=== PATIENT | female | born 1990 | race Caucasian/White ===

== ENCOUNTER 2016-08-15 15:12 | Emergency (ER) | payer OTHER ==
--- NOTE | 2016-08-15 15:54 | ED CLINICAL REPORT ---
Clinical Report - Physicians/Mid Levels [facility] [address] [place] [address] 08/15/2016 15:13 Patient: AVEL PATEL Time Seen: 15:49; initial patient contact. Arrived- By private vehicle. HISTORY OF PRESENT ILLNESS Chief Complaint: SINUS PAIN, CHILLS and MUSCLE ACHES. RUNNY NOSE. This started 10 days and is still present. The illness is described as mild. The patient has had a cough, nasal congestion, chills and a nasal discharge. No difficulty breathing, chest discomfort or pain or sore throat. Additional history - The patient has had contact with a sick individual. Similar symptoms previously: Many times (long history of recurrant sinusitis.). Recent medical care: Not recently seen/assessed. REVIEW OF SYSTEMS All systems otherwise negative, except as recorded above. PAST HISTORY See nurses notes. Problems: no known problems. Medications: SUMAtriptan Succinate Oral (Tablet 50 mg) 1 tablet, as needed. Allergies: None. SOCIAL HISTORY Light tobacco smoker (cigarette)- less than 1/2 a pack per day. Occasional alcohol use. No drug use. FAMILY HISTORY Negative. ADDITIONAL NOTES The nursing notes have been reviewed with agreement regarding the chief complaint, HPI, ROS, PMH and patient medications and allergies. PHYSICAL EXAM Vital Signs: 08/15/2016 15:35 BP: 118/74. HR: 74. RR: 18. O2 saturation: 99%. Temp: 98.4 F. Pain level now: 8/10. Have been reviewed. Appearance: Alert. No acute distress. Head: Tenderness present to percussion/palpation of the sinuses: mild right and left frontal tenderness, maxillary tenderness. Eyes: Pupils equal, round and reactive to light. Eyes normal inspection. ENT: Ears normal. Nose normal. Pharynx normal. Uvula midline. Neck: Normal inspection. Neck supple. CVS: Normal heart rate and rhythm. Heart sounds normal. Respiratory: No respiratory distress. Breath sounds normal. CLINICAL IMPRESSION Acute maxillary sinusitis INSTRUCTIONS No restrictions to activity. Drink plenty of fluids. Do not smoke. No alcohol. Warnings: GENERAL WARNINGS: Return or contact your physician immediately if your condition worsens or changes unexpectedly, if not improving as expected, or if other problems arise. Your Current Medications: CONTINUE TAKING THE FOLLOWING MEDICATIONS: SUMAtriptan Succinate Oral : Tablet 50 mg, 1 tablet, prn. Prescription Medications: Amoxicillin 500 mg capsules: take 1 orally every 8 hours for 10 days. No refills. Follow-up: Follow up with your doctor in ten days if not well. Reason for referral: sinusitis. Understanding of the discharge instructions verbalized by patient. (Electronically signed by Carla Faith PA-C 08/15/2016 16:23)
--- NOTE | 2016-08-15 15:54 | ED NURSING NOTES ---
Clinical Report - Nurses [facility] [address] [place] [address] 08/15/2016 15:13 Patient: AVEL PATEL TRIAGE Triage time 15:36 Aug 15 2016. Acuity: LEVEL 4. Chief Complaint: COUGH, RUNNY NOSE, FEVER and SORE THROAT and (co sinus pressure with cough, runny nose, fever and st since August 13). Alert (x 4). SEPSIS SCREEN: Sepsis Screen: negative. --15:46 Stacey Cornelius R.N. 15:35 08/15/16. BP: 118/74. HR: 74. RR: 18. O2 saturation: 99%. Temp: 98.4 F. Pain level now: 8/10. Additional comments: pt rates pain 8/10, describes as "pressure" in face and head. --15:46 Stacey Cornelius R.N. Weight: 81.6 kg stated. Height/Length: 67 inches Per Patient. BMI: 28.2. --15:44 Stacey Cornelius R.N. Medications SUMAtriptan Succinate Oral (Tablet 50 mg) 1 tablet, as needed. --15:38 Stacey Cornelius R.N. Allergies None. --15:39 Stacey Cornelius R.N. History Arrived by private vehicle. Historian: patient. Accompanied by family and mother and daughter. 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 (niquel cough syrup). PAST MEDICAL HX: Immunizations: up-to-date. Last normal menstrual period- Merina- reports gets period every 2-3 months. Denies current . SOCIAL HX: Current every day light tobacco smoker, start date 2006 (cigarette)- less than 1/2 a pack per day. Occasional alcohol use; consumes beer occasionally. No infectious disease exposure. ABUSE ASSESSMENT: No report of abuse. SELF HARM ASSESSMENT: A self harm assessment was performed. The patient answered "no" to the question "Have you recently felt down, depressed, or hopeless?", "Have you noticed less interest or pleasure in doing things?", "Do you have thoughts of harming or killing yourself?", "Are you here because you tried to hurt yourself?", "Have you ever tried to hurt yourself before today?", "Have you recently had thoughts about harming or killing others?" and "Do you have any dangerous items in your possession?". The patient reports their behavior. FALL RISK ASSESSMENT: Fall risk assessment completed. No fall risk identified. NUTRITIONAL RISK ASSESSMENT: The nutritional risk assessment revealed no deficiencies. FUNCTIONAL ASSESSMENT: Functional assessment: no impairments noted. LEARNING NEEDS ASSESSMENT: The learning needs assessment revealed no barriers. SKIN INTEGRITY ASSESSMENT: Skin integrity risk assessment completed. No skin integrity risk identified. --15:46 Stacey Cornelius R.N. PROBLEMS: no known problems. ADDITIONAL SURGERIES: Pin wrist . Wrist. --15:39 Stacey Cornelius R.N. Interventions ID band on patient. To treatment room. She does not have advanced directives. No allergy band on patient. --15:46 Stacey Cornelius R.N. PHYSICAL ASSESSMENT GENERAL / NEURO / PSYCH: Alert. Oriented X 4. Appears in no acute distress. HEENT: Pupils equal, round and reactive to light. Ears within normal limits. Nares within normal limits. Voice within normal limits. Mucous membranes are pink. RESPIRATORY: Respirations not labored. Breath sounds within normal limits. SKIN: Skin is warm and dry. Normal skin turgor. --15:46 Stacey Cornelius R.N. DISPOSITION / DISCHARGE Departure time: 16:09 Aug 15 2016. Condition at departure: unchanged. ( pt to p/u atbx and begin taking immediately following rx). No learning barriers present. Discharge instructions provided and reviewed with the patient. Reviewed medication(s) side effects, dosing and course information. Prescription(s) given to the patient. The patient has no activity restrictions. Note given. Patient verbalized understanding. Written instructions provided in [place]. The patient was discharged home and accompanied by family. She left the Emergency Department ambulatory and (ambulated to lobby with steady gait). Family member driving. --16:10 Stacey Cornelius R.N. 15:56 08/15/16. BP: 114/68. HR: 77. RR: 17. O2 saturation: 100%. Pain level now: 12/31. --16:10 Stacey Cornelius R.N. 15:56 08/15/16. BP: 114/68. HR: 77. RR: 17. O2 saturation: 100%. Pain level now: 12/31. 15:35 08/15/16. BP: 118/74. HR: 74. RR: 18. O2 saturation: 99%. Temp: 98.4 F. Pain level now: 12/31. Additional comments: pt rates pain 12/31, describes as "pressure" in face and head. --16:11 Stacey Cornelius R.N. Locked/Released at 08/15/2016 19:41 by Michelle Pena R.N.
--- NOTE | 2016-08-15 15:54 | ED NURSING NOTES ---
Clinical Report - Nurses [facility] [address] [place] [address] 08/15/2016 15:13 Patient: AVEL PATEL TRIAGE Triage time 15:36 Aug 15 2016. Acuity: LEVEL 4. Chief Complaint: COUGH, RUNNY NOSE, FEVER and SORE THROAT and (co sinus pressure with cough, runny nose, fever and st since August 13). Alert (x 4). SEPSIS SCREEN: Sepsis Screen: negative. --15:46 Stacey Cornelius R.N. 15:35 08/15/16. BP: 118/74. HR: 74. RR: 18. O2 saturation: 99%. Temp: 98.4 F. Pain level now: 8/10. Additional comments: pt rates pain 8/10, describes as "pressure" in face and head. --15:46 Stacey Cornelius R.N. Weight: 81.6 kg stated. Height/Length: 67 inches Per Patient. BMI: 28.2. --15:44 Stacey Cornelius R.N. Medications SUMAtriptan Succinate Oral (Tablet 50 mg) 1 tablet, as needed. --15:38 Stacey Cornelius R.N. Allergies None. --15:39 Stacey Cornelius R.N. History Arrived by private vehicle. Historian: patient. Accompanied by family and mother and daughter. 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 (niquel cough syrup). PAST MEDICAL HX: Immunizations: up-to-date. Last normal menstrual period- Merina- reports gets period every 2-3 months. Denies current . SOCIAL HX: Current every day light tobacco smoker, start date 2006 (cigarette)- less than 1/2 a pack per day. Occasional alcohol use; consumes beer occasionally. No infectious disease exposure. ABUSE ASSESSMENT: No report of abuse. SELF HARM ASSESSMENT: A self harm assessment was performed. The patient answered "no" to the question "Have you recently felt down, depressed, or hopeless?", "Have you noticed less interest or pleasure in doing things?", "Do you have thoughts of harming or killing yourself?", "Are you here because you tried to hurt yourself?", "Have you ever tried to hurt yourself before today?", "Have you recently had thoughts about harming or killing others?" and "Do you have any dangerous items in your possession?". The patient reports their behavior. FALL RISK ASSESSMENT: Fall risk assessment completed. No fall risk identified. NUTRITIONAL RISK ASSESSMENT: The nutritional risk assessment revealed no deficiencies. FUNCTIONAL ASSESSMENT: Functional assessment: no impairments noted. LEARNING NEEDS ASSESSMENT: The learning needs assessment revealed no barriers. SKIN INTEGRITY ASSESSMENT: Skin integrity risk assessment completed. No skin integrity risk identified. --15:46 Stacey Cornelius R.N. PROBLEMS: no known problems. ADDITIONAL SURGERIES: Pin wrist . Wrist. --15:39 Stacey Cornelius R.N. Interventions ID band on patient. To treatment room. She does not have advanced directives. No allergy band on patient. --15:46 Stacey Cornelius R.N. PHYSICAL ASSESSMENT GENERAL / NEURO / PSYCH: Alert. Oriented X 4. Appears in no acute distress. HEENT: Pupils equal, round and reactive to light. Ears within normal limits. Nares within normal limits. Voice within normal limits. Mucous membranes are pink. RESPIRATORY: Respirations not labored. Breath sounds within normal limits. SKIN: Skin is warm and dry. Normal skin turgor. --15:46 Stacey Cornelius R.N. DISPOSITION / DISCHARGE Departure time: 16:09 Aug 15 2016. Condition at departure: unchanged. ( pt to p/u atbx and begin taking immediately following rx). No learning barriers present. Discharge instructions provided and reviewed with the patient. Reviewed medication(s) side effects, dosing and course information. Prescription(s) given to the patient. The patient has no activity restrictions. Note given. Patient verbalized understanding. Written instructions provided in [place]. The patient was discharged home and accompanied by family. She left the Emergency Department ambulatory and (ambulated to lobby with steady gait). Family member driving. --16:10 Stacey Cornelius R.N. 15:56 08/15/16. BP: 114/68. HR: 77. RR: 17. O2 saturation: 100%. Pain level now: 12/31. --16:10 Stacey Cornelius R.N. 15:56 08/15/16. BP: 114/68. HR: 77. RR: 17. O2 saturation: 100%. Pain level now: 12/31. 15:35 08/15/16. BP: 118/74. HR: 74. RR: 18. O2 saturation: 99%. Temp: 98.4 F. Pain level now: 12/31. Additional comments: pt rates pain 12/31, describes as "pressure" in face and head. --16:11 Stacey Cornelius R.N. Locked/Released at 08/15/2016 19:41 by Michelle Pena R.N.
--- NOTE | 2016-08-15 15:54 | ED CLINICAL REPORT ---
Clinical Report - Physicians/Mid Levels [facility] [address] [place] [address] 08/15/2016 15:13 Patient: AVEL PATEL Time Seen: 15:49; initial patient contact. Arrived- By private vehicle. HISTORY OF PRESENT ILLNESS Chief Complaint: SINUS PAIN, CHILLS and MUSCLE ACHES. RUNNY NOSE. This started 10 days and is still present. The illness is described as mild. The patient has had a cough, nasal congestion, chills and a nasal discharge. No difficulty breathing, chest discomfort or pain or sore throat. Additional history - The patient has had contact with a sick individual. Similar symptoms previously: Many times (long history of recurrant sinusitis.). Recent medical care: Not recently seen/assessed. REVIEW OF SYSTEMS All systems otherwise negative, except as recorded above. PAST HISTORY See nurses notes. Problems: no known problems. Medications: SUMAtriptan Succinate Oral (Tablet 50 mg) 1 tablet, as needed. Allergies: None. SOCIAL HISTORY Light tobacco smoker (cigarette)- less than 1/2 a pack per day. Occasional alcohol use. No drug use. FAMILY HISTORY Negative. ADDITIONAL NOTES The nursing notes have been reviewed with agreement regarding the chief complaint, HPI, ROS, PMH and patient medications and allergies. PHYSICAL EXAM Vital Signs: 08/15/2016 15:35 BP: 118/74. HR: 74. RR: 18. O2 saturation: 99%. Temp: 98.4 F. Pain level now: 8/10. Have been reviewed. Appearance: Alert. No acute distress. Head: Tenderness present to percussion/palpation of the sinuses: mild right and left frontal tenderness, maxillary tenderness. Eyes: Pupils equal, round and reactive to light. Eyes normal inspection. ENT: Ears normal. Nose normal. Pharynx normal. Uvula midline. Neck: Normal inspection. Neck supple. CVS: Normal heart rate and rhythm. Heart sounds normal. Respiratory: No respiratory distress. Breath sounds normal. CLINICAL IMPRESSION Acute maxillary sinusitis INSTRUCTIONS No restrictions to activity. Drink plenty of fluids. Do not smoke. No alcohol. Warnings: GENERAL WARNINGS: Return or contact your physician immediately if your condition worsens or changes unexpectedly, if not improving as expected, or if other problems arise. Your Current Medications: CONTINUE TAKING THE FOLLOWING MEDICATIONS: SUMAtriptan Succinate Oral : Tablet 50 mg, 1 tablet, prn. Prescription Medications: Amoxicillin 500 mg capsules: take 1 orally every 8 hours for 10 days. No refills. Follow-up: Follow up with your doctor in ten days if not well. Reason for referral: sinusitis. Understanding of the discharge instructions verbalized by patient. (Electronically signed by Carla Faith PA-C 08/15/2016 16:23)
--- NOTE | 2016-08-15 19:41 | ED MED RECONCILIATION SUMMARY ---
Patient: AVEL PATEL Medication Reconciliation Report [facility] VisitID: [id number] [address] [place] [address] 25y, F Registration Date/Time: 08/15/2016 Weight: 81.6 kg Height/Length: 67 in. BMI: 28.2 ALLERGIES: None The patient's Home Medications are listed below: CONTINUE TAKING THE FOLLOWING MEDICATIONS: SUMAtriptan Succinate Oral (50 mg) 1 tablet The source(s) of the original Home Medication information: Not obtained. The following Medications were given to the patient in the Emergency Department: None. The following Medications were prescribed to the patient: Amoxicillin 500 mg capsules: take 1 orally every 8 hours for 10 days. No refills. -- Carla Faith PA-C
--- NOTE | 2016-08-15 19:41 | ED MED RECONCILIATION SUMMARY ---
Patient: AVEL PATEL Medication Reconciliation Report [facility] VisitID: [id number] [address] [place] [address] 25y, F Registration Date/Time: 08/15/2016 Weight: 81.6 kg Height/Length: 67 in. BMI: 28.2 ALLERGIES: None The patient's Home Medications are listed below: CONTINUE TAKING THE FOLLOWING MEDICATIONS: SUMAtriptan Succinate Oral (50 mg) 1 tablet The source(s) of the original Home Medication information: Not obtained. The following Medications were given to the patient in the Emergency Department: None. The following Medications were prescribed to the patient: Amoxicillin 500 mg capsules: take 1 orally every 8 hours for 10 days. No refills. -- Carla Faith PA-C
--- NOTE | 2016-08-15 19:41 | ED MAR SUMMARY ---
..... Medication Administration Record [facility] [address], [place] [id number] Patient: AVEL PATEL Visit ID: [id number] 25y, F Weight: 81.6 kg Height/Length: 67 in BMI: 28.2 ALLERGIES: None
--- NOTE | 2016-08-15 19:41 | ED DISCHARGE INSTRUCTIONS ---
Patient: AVEL PATEL General Instructions [facility] VisitID: [id number] [place] [address] 25y, F Registration Date/Time: 08/15/2016 Acute maxillary sinusitis INSTRUCTIONS No restrictions to activity. Drink plenty of fluids. Do not smoke. No alcohol. Warnings: GENERAL WARNINGS: Return or contact your physician immediately if your condition worsens or changes unexpectedly, if not improving as expected, or if other problems arise. Your Current Medications: CONTINUE TAKING THE FOLLOWING MEDICATIONS: SUMAtriptan Succinate Oral : Tablet 50 mg, 1 tablet, prn. Prescription Medications: Amoxicillin 500 mg capsules: take 1 orally every 8 hours for 10 days. No refills. Follow-up: Follow up with your doctor in ten days if not well. Reason for referral: sinusitis. Understanding of the discharge instructions verbalized by patient. ADDITIONAL INFORMATION Sinusitis [Abx Tx] The sinuses are air-filled spaces within the bones of the face. They connect to the inside of the nose. Sinusitis is an inflammation of the tissue lining the sinus cavity. Sinus inflammation can occur during a cold or hay-fever (allergies to pollens and other particles in the air) and cause symptoms of sinus congestion and fullness. A sinus infection causes fever, headache and facial pain. There is usually green or yellow drainage from the nose or into the back of the throat (post-nasal drip). Antibiotics are prescribed to treat this condition. Home Care: Drink plenty of water, hot tea, and other liquids to stay well hydrated. This thins the mucus and promotes sinus drainage. Apply heat to the painful areas of the face. Use a towel soaked in hot water. Or, metal sprayer protective coating the shower and direct the hot spray onto your face. This is a good way to inhale warm water vapor and get heat on your face at the same time. (Cover your mouth and nose with your hands so you can still breathe as you do this.) Use a vaporizer with products such as Vicks VapoRub (contains menthol) at night. Suck on peppermint, menthol or eucalyptus hard candies during the day. An expectorant containing guaifenesin (such as Robitussin), helps to thin the mucus and promote drainage from the sinuses. Ebtb-lkk-uafzuan decongestants may be used unless a similar medicine was prescribed. Nasal sprays work the fastest. Use one that contains phenylephrine (Fam-synephrine, Sinex and others) or oxymetazoline (Afrin). First blow the nose gently to remove mucus, then apply the drops. Do not use these medicines more often than directed on the label or for more than three days or symptoms may worsen. You may also use tablets containing pseudoephedrine (Sudafed). Many sinus remedies combine ingredients, which may increase side effects. Read the labels or ask the pharmacist for help. NOTE: Persons with high blood pressure should not use decongestants. They can raise blood pressure. Antihistamines are useful if allergies are a cause of your sinusitis. The mildest one is chlorpheniramine (available without a prescription). The dose for adults is 8-12mg three times a day. [NOTE: Do not use chlorpheniramine if you have glaucoma or if you are a man with trouble urinating due to an enlarged prostate.] Claritin (loratidine) is an antihistamine that causes less drowsiness and is a good alternative for daytime use. Do not use nasal rinses or irrigation during an acute sinus infection, unless advised by your doctor. Rinsing may spread the infection to other sinuses. You may use acetaminophen (Tylenol) or ibuprofen (Motrin, Advil) to control pain, unless another pain medicine was prescribed. [ NOTE: If you have chronic liver or kidney disease or ever had a stomach ulcer, talk with your doctor before using these medicines.] (Aspirin should never be used in anyone under 18 years of age who is ill with a fever. It may cause severe liver damage.) Finish the full course, even if you are feeling better after a few days. Follow Up with your doctor or this facility in one week or as instructed by our staff if not improving. Get Prompt Medical Attention if any of the following occur: Facial pain or headache becomes more severe Stiff neck Unusual drowsiness or confusion, or not acting like your normal self Swelling of the forehead or eyelids Vision problems including blurred or double vision Fever of 100.4F (38C) or higher, or as directed by your healthcare provider Seizure You have been given the following additional information: Sinusitis, Abx Tx No restrictions to activity. (Electronically signed by Carla Faith PA-C 08/15/2016 16:23)
--- NOTE | 2016-08-15 19:41 | ED MAR SUMMARY ---
..... Medication Administration Record [facility] [address] [place], [place] [id number] Patient: AVEL PATEL Visit ID: [id number] 25y, F Weight: 81.6 kg Height/Length: 67 in BMI: 28.2 ALLERGIES: None
== END 2016-08-15 16:09 | disposition home or self-care (01) ==
LOC: ED SRH 15:12
DX: J01.00 Acute maxillary sinusitis, unspecified (principal); F17.210 Nicotine dependence, cigarettes, uncomplicated

== ENCOUNTER 2016-08-25 19:27 | Emergency (ER) | payer OTHER ==
--- NOTE | 2016-08-25 22:18 | ED CLINICAL REPORT ---
Clinical Report - Physicians/Mid Levels [facility] [address] [place] [address] 08/25/2016 19:27 Patient: AVEL PATEL Time Seen: 21:25. Arrived- By private vehicle. Historian- patient. HISTORY OF PRESENT ILLNESS Chief Complaint: SORE THROAT. This started about 2 weeks ago and is still present. Pain described as moderate. The patient has had a sore throat. No mouth sores, nasal discharge or congestion, ear pain or toothache. No swollen jaw or face, jaw pain or facial pain. Similar symptoms previously: Occasionally. Recent medical care: Not recently seen/assessed. REVIEW OF SYSTEMS No fever, eye discomfort, cough, difficulty breathing or chest pain. No nausea, diarrhea, abdominal pain, difficulty with urination or headache. No fainting episodes, joint pain, skin rash, enlarged lymph nodes or vomiting. Denies current . All systems otherwise negative, except as recorded above. PAST HISTORY Problems: Sinusitis. Additional Surgeries: Wrist. Medications: Amoxicillin Oral, , sinus infection, stopped yesterday. SUMAtriptan Succinate Oral (Tablet 50 mg) 1 tablet, as needed. Allergies: None. SOCIAL HISTORY Smoker- current status unknown. Occasional alcohol use. History of drug use: marijuana. ADDITIONAL NOTES The nursing notes have been reviewed. PHYSICAL EXAM Vital Signs: 08/25/2016 20:08 BP: 102/75. HR: 108. RR: 16. O2 saturation: 100%. Temp: 98.8 F. Pain level now: 7/10. Have been reviewed. Appearance: Alert. No acute distress. Head: Normal external inspection. Eyes: Pupils equal, round and reactive to light. Conjunctivae and eyelids normal. ENT: Nose normal. Moderate generalized pharyngeal erythema. No pharyngeal vesicles or ulcerations. Lips normal. No trismus present. Uvula midline. No tonsillar exudate. Neck: Trachea midline. No adenopathy. Thyroid normal. Neck supple. CVS: Normal heart rate and rhythm. Heart sounds normal. Pulses normal. Respiratory: No respiratory distress. Breath sounds normal. Abdomen: Soft and nontender. No organomegaly. Skin: Normal skin color. No rash. Normal skin turgor. Extremities: Extremities exhibit normal ROM. Extremities nontender. Neuro: Oriented X 3. No motor deficit. No sensory deficit. LABS, X-RAYS, AND EKG Laboratory Tests: Culture, Strep Screen: (FRANCISCO: 08/25/2016 20:15) ( MsgRcvd 08/25/2016 20:39) Final results Test Result Flag Units (Reference) RAPID STREP SCREEN - THROAT CALLED TO: Arnulfo HINOJOSA -- DATE: 08/25/16 POSITIVE SCREEN: RAPID STREP SCREEN: POSITIVE FOR GROUP A STREP . Pulse Oximetry: 08/25/2016 20:08 O2 saturation: 100%. (FIO2 - room air). Interpretation: normal. PROGRESS AND PROCEDURES Course of Care: Pt was treated with IM Rocephin for her positive strep test. She was also given hydrocodone and prednisone for symptomatic relief. Patient counseled in person regarding the patient's stable condition, test results, diagnosis and need for follow-up. Concerns were addressed. Old medical records reviewed. Disposition: Discharged. Condition: stable and improved. CLINICAL IMPRESSION Acute streptococcal pharyngitis INSTRUCTIONS Drink plenty of fluids. Warnings: SEDATIVE MEDICATION: You were given sedative medication during your visit. Do not drive or operate dangerous machinery for 6 hours. GENERAL WARNINGS: Return or contact your physician immediately if your condition worsens or changes unexpectedly, if not improving as expected, or if other problems arise. Your Current Medications: CONTINUE TAKING THE FOLLOWING MEDICATIONS: Amoxicillin Oral : Stopped: yesterday, sinus infection. SUMAtriptan Succinate Oral : Tablet 50 mg, 1 tablet, prn. Prescription Medications: Prednisone 20 mg: take 3 orally every day for 2 days. Dispense sufficient quantity. No refills. Ceftin 500 mg: take 1 tab orally every 12 hours for 7 days. No refill. Substitution is permissible. Hydrocodone / APAP Liquid 10mg/325mg/15 mL: take five (5) mL orally every 4 hours as needed for pain. Dispense seventy-five (75) mL. No refill. Follow-up: Follow up with your doctor as needed. Understanding of the discharge instructions verbalized by patient. (Electronically signed by Annabelle Donahue MD 09/04/2016 5:37) Addenda for AVEL PATEL VisitID: [id number] Date: 08/25/2016 08/26/2016 15:54 Phone call placed to patient, voicemail left for patient to call us back. Gloria Chu, SURGICAL SCRUB TECH, wants pt to start Amoxicillin 500 mg 1 po TID x 10 days, #30. (Electronically signed by Aissatou Cruz R.N. - 08/26/2016 15:54) 08/26/2016 19:52 1900- updated provider, Gloria Iyer about course of visit; Pt had just finished a corse of Amoxicillin the day before she was seen in ED and requested not to be put back on same medication. Gloria Iyer states it is ok to not change prescription at this time. 1940- Pt calls back and discussion explained to pt and pt instructed to continue taking Ceftin, as prescribed. Pt states understanding and agrees to plan of care. (Electronically signed by Barbara Rodriguez R.N. - 08/26/2016 19:52)
--- NOTE | 2016-08-25 22:18 | ED ORDER SUMMARY ---
..... Patient: AVEL PATEL OrderSheet [facility] VisitID: [id number] [address] [place] [address] 25y, F Registration Date/Time: 08/25/2016 ORDER SHEET Weight: 81.6 kg (stated) Allergies: None GENERAL ORDERS: Culture, Strep Screen Urgent (20:19 08/25/2016 RCollier R.N. per protocol) (Ack 20:20 IJurca ER Tech1) (22:23 RCollier R.N.) MEDICATION ORDERS: Amoxicillin PO 500 mg (NOW) (21:25 08/25/2016 Alda ALBERT) (Ack 21:49 RCollier R.N.) (Cancelled: Other22:14 Alda ALBERT) Prednisone PO 60 mg (NOW) (21:25 08/25/2016 Alda ALBERT) (Ack 21:49 RCollier R.N.) (22:38 RCollier R.N.) Rocephin IM 1 gm (NOW) (22:15 08/25/2016 Alda ALBERT) (Ack 22:23 RCollier R.N.) (22:37 RCollier R.N.) Hydrocodone-APAP Liquid PO 10 mL (NOW, HIGH ALERT MEDICATION) (22:15 08/25/2016 Alda ALBERT) (Ack 22:23 RCollier R.N.) (22:38 RCollier R.N.) IV FLUIDS: ORDER SHEET NOTES: [Electronically signed by Barbara Rodriguez R.N. (22:50 08/25/2016)] [Electronically signed by Annabelle Donahue MD (05:37 09/04/2016)] [Electronically locked/signed by Barbara Rodriguez R.N. (22:50 08/25/2016)]
--- NOTE | 2016-08-25 22:18 | ED NURSING NOTES ---
Clinical Report - Nurses [facility] [address] [place] [address] 08/25/2016 19:27 Patient: AVEL PATEL TRIAGE Triage time 20:08. Chief Complaint: SORE THROAT. --20:15 Nereyda Ledesma R.N. 20:08 08/25/16. BP: 102/75 taken on the right arm, via an automated monitor, while sitting. HR: 108 (regular, tachycardic and strong). RR: 16 (regular, unlabored and normal). O2 saturation: 100%. Temp: 98.8 F (oral). Pain level now: 11/30. --20:15 Nereyda Ledesma R.N. Weight: 81.6 kg stated. Height/Length: 67 inches. BMI: 28.2. --20:12 Nereyda Ledesma R.N. Medications SUMAtriptan Succinate Oral (Tablet 50 mg) 1 tablet, as needed. --20:11 Nereyda Ledesma R.N. Amoxicillin Oral, , sinus infection, stopped yesterday. --21:50 Barbara Rodriguez R.N. Allergies None. --20:11 Nereyda Ledesma R.N. History Arrived by private vehicle. Historian: patient. Accompanied by friend. Primary physician (Filemon Sánchez). ( Two weeks ago treated for sinus infection given amox has taken all of it. Now c/o sore throat with puss on tonsils.). SOCIAL HX: Light tobacco smoker- less than 1/2 a pack per day. Occasional alcohol use. History of drug use: marijuana. FALL RISK ASSESSMENT: Fall risk assessment completed. No fall risk identified. NUTRITIONAL RISK ASSESSMENT: The nutritional risk assessment revealed no deficiencies. FUNCTIONAL ASSESSMENT: Functional assessment: no impairments noted. LEARNING NEEDS ASSESSMENT: The learning needs assessment revealed no barriers. --20:15 Nereyda Ledesma R.N. PHYSICAL ASSESSMENT Ambulatory to room. GENERAL / NEURO / PSYCH: Alert. Oriented X 4. Appears in no acute distress. HEENT: Voice within normal limits. RESPIRATORY: Respirations not labored. CVS: Capillary refill less than 2 seconds. SKIN: Skin is warm and dry. --21:51 Barbara Rodriguez R.N. NURSING PROGRESS NOTES 20:41 08/25/16. ( LAB calls in + result for group A Strep). --20:41 Barbara Rodriguez R.N. Head of bed elevated. Two patient identifiers checked. Call light placed in reach. Side rails up x 1. Bed placed in lowest position. Brakes of bed on. --21:51 Barbara Rodriguez R.N. Patient ready for evaluation- chart flagged. --21:51 Barbara Rodriguez R.N. 22:29 08/25/2016 Rocephin (CefTRIAXone Sodium) IM 1 gm with 1% Lidocaine 2.1mL. Given in the left ventral gluteus. Allergies verified and confirmed 5 rights. --22:37 Barbara Rodriguez R.N. 22:30 08/25/2016 Prednisone PO Tablets 60 mg given. Allergies verified and confirmed 5 rights. --22:38 Barbara Rodriguez R.N. 22:31 08/25/2016 Hydrocodone-APAP Liquid (Hydrocodone-Acetaminophen) PO Oral Suspension 10 mL given. Allergies verified, confirmed 5 rights and sedative warning given to the patient. --22:38 Barbara Rodriguez R.N. DISPOSITION / DISCHARGE Condition at departure: stable. No learning barriers present. Discharge instructions provided and reviewed with the patient. Reviewed medication(s) side effects, precautions, dosing and course information. Prescription(s) given to the patient. Patient verbalized understanding. Written instructions provided in Solomon Islander. The patient was discharged home and accompanied by four slide machine operator. She left the Emergency Department ambulatory and via private vehicle. Cigarette Stamper driving. --22:49 Barbara Rodriguez R.N. 22:49 08/25/16. BP: deferred. HR: deferred. RR: 15 (regular and unlabored). O2 saturation: deferred. Temp: deferred. [place] pain scale: 2/10. --22:49 Barbara Rodriguez R.N. Locked/Released at 08/25/2016 22:50 by Barbara Rodriguez R.N.
--- NOTE | 2016-08-25 22:18 | ED ORDER SUMMARY ---
..... Patient: AVEL PATEL OrderSheet [facility] VisitID: [id number] [address] [place] [address] 25y, F Registration Date/Time: 08/25/2016 ORDER SHEET Weight: 81.6 kg (stated) Allergies: None GENERAL ORDERS: Culture, Strep Screen Urgent (20:19 08/25/2016 RCollier R.N. per protocol) (Ack 20:20 IJurca ER Tech1) (22:23 RCollier R.N.) MEDICATION ORDERS: Amoxicillin PO 500 mg (NOW) (21:25 08/25/2016 Alda ALBERT) (Ack 21:49 RCollier R.N.) (Cancelled: Other22:14 Alda ALBERT) Prednisone PO 60 mg (NOW) (21:25 08/25/2016 Alda ALBERT) (Ack 21:49 RCollier R.N.) (22:38 RCollier R.N.) Rocephin IM 1 gm (NOW) (22:15 08/25/2016 Alda ALBERT) (Ack 22:23 RCollier R.N.) (22:37 RCollier R.N.) Hydrocodone-APAP Liquid PO 10 mL (NOW, HIGH ALERT MEDICATION) (22:15 08/25/2016 Alda ALBERT) (Ack 22:23 RCollier R.N.) (22:38 RCollier R.N.) IV FLUIDS: ORDER SHEET NOTES: [Electronically signed by Barbara Rodriguez R.N. (22:50 08/25/2016)] [Electronically signed by Annabelle Donahue MD (05:37 09/04/2016)] [Electronically locked/signed by Barbara Rodriguez R.N. (22:50 08/25/2016)]
--- NOTE | 2016-08-25 22:18 | ED CLINICAL REPORT ---
Clinical Report - Physicians/Mid Levels [facility] [address] [place] [address] 08/25/2016 19:27 Patient: AVEL PATEL Time Seen: 21:25. Arrived- By private vehicle. Historian- patient. HISTORY OF PRESENT ILLNESS Chief Complaint: SORE THROAT. This started about 2 weeks ago and is still present. Pain described as moderate. The patient has had a sore throat. No mouth sores, nasal discharge or congestion, ear pain or toothache. No swollen jaw or face, jaw pain or facial pain. Similar symptoms previously: Occasionally. Recent medical care: Not recently seen/assessed. REVIEW OF SYSTEMS No fever, eye discomfort, cough, difficulty breathing or chest pain. No nausea, diarrhea, abdominal pain, difficulty with urination or headache. No fainting episodes, joint pain, skin rash, enlarged lymph nodes or vomiting. Denies current . All systems otherwise negative, except as recorded above. PAST HISTORY Problems: Sinusitis. Additional Surgeries: Wrist. Medications: Amoxicillin Oral, , sinus infection, stopped yesterday. SUMAtriptan Succinate Oral (Tablet 50 mg) 1 tablet, as needed. Allergies: None. SOCIAL HISTORY Smoker- current status unknown. Occasional alcohol use. History of drug use: marijuana. ADDITIONAL NOTES The nursing notes have been reviewed. PHYSICAL EXAM Vital Signs: 08/25/2016 20:08 BP: 102/75. HR: 108. RR: 16. O2 saturation: 100%. Temp: 98.8 F. Pain level now: 7/10. Have been reviewed. Appearance: Alert. No acute distress. Head: Normal external inspection. Eyes: Pupils equal, round and reactive to light. Conjunctivae and eyelids normal. ENT: Nose normal. Moderate generalized pharyngeal erythema. No pharyngeal vesicles or ulcerations. Lips normal. No trismus present. Uvula midline. No tonsillar exudate. Neck: Trachea midline. No adenopathy. Thyroid normal. Neck supple. CVS: Normal heart rate and rhythm. Heart sounds normal. Pulses normal. Respiratory: No respiratory distress. Breath sounds normal. Abdomen: Soft and nontender. No organomegaly. Skin: Normal skin color. No rash. Normal skin turgor. Extremities: Extremities exhibit normal ROM. Extremities nontender. Neuro: Oriented X 3. No motor deficit. No sensory deficit. LABS, X-RAYS, AND EKG Laboratory Tests: Culture, Strep Screen: (FRANCISCO: 08/25/2016 20:15) ( MsgRcvd 08/25/2016 20:39) Final results Test Result Flag Units (Reference) RAPID STREP SCREEN - THROAT CALLED TO: Arnulfo HINOJOSA -- DATE: 08/25/16 POSITIVE SCREEN: RAPID STREP SCREEN: POSITIVE FOR GROUP A STREP . Pulse Oximetry: 08/25/2016 20:08 O2 saturation: 100%. (FIO2 - room air). Interpretation: normal. PROGRESS AND PROCEDURES Course of Care: Pt was treated with IM Rocephin for her positive strep test. She was also given hydrocodone and prednisone for symptomatic relief. Patient counseled in person regarding the patient's stable condition, test results, diagnosis and need for follow-up. Concerns were addressed. Old medical records reviewed. Disposition: Discharged. Condition: stable and improved. CLINICAL IMPRESSION Acute streptococcal pharyngitis INSTRUCTIONS Drink plenty of fluids. Warnings: SEDATIVE MEDICATION: You were given sedative medication during your visit. Do not drive or operate dangerous machinery for 6 hours. GENERAL WARNINGS: Return or contact your physician immediately if your condition worsens or changes unexpectedly, if not improving as expected, or if other problems arise. Your Current Medications: CONTINUE TAKING THE FOLLOWING MEDICATIONS: Amoxicillin Oral : Stopped: yesterday, sinus infection. SUMAtriptan Succinate Oral : Tablet 50 mg, 1 tablet, prn. Prescription Medications: Prednisone 20 mg: take 3 orally every day for 2 days. Dispense sufficient quantity. No refills. Ceftin 500 mg: take 1 tab orally every 12 hours for 7 days. No refill. Substitution is permissible. Hydrocodone / APAP Liquid 10mg/325mg/15 mL: take five (5) mL orally every 4 hours as needed for pain. Dispense seventy-five (75) mL. No refill. Follow-up: Follow up with your doctor as needed. Understanding of the discharge instructions verbalized by patient. (Electronically signed by Annabelle Donahue MD 09/04/2016 5:37) Addenda for AVEL PATEL VisitID: [id number] Date: 08/25/2016 08/26/2016 15:54 Phone call placed to patient, voicemail left for patient to call us back. Gloria Chu, OVERAGE SHORTAGE AND DAMAGE CLERK, wants pt to start Amoxicillin 500 mg 1 po TID x 10 days, #30. (Electronically signed by Aissatou Cruz R.N. - 08/26/2016 15:54) 08/26/2016 19:52 1900- updated provider, Gloria Iyer about course of visit; Pt had just finished a corse of Amoxicillin the day before she was seen in ED and requested not to be put back on same medication. Gloria Iyer states it is ok to not change prescription at this time. 1940- Pt calls back and discussion explained to pt and pt instructed to continue taking Ceftin, as prescribed. Pt states understanding and agrees to plan of care. (Electronically signed by Barbara Rodriguez R.N. - 08/26/2016 19:52)
--- NOTE | 2016-08-25 22:18 | ED NURSING NOTES ---
Clinical Report - Nurses [facility] [address] [place] [address] 08/25/2016 19:27 Patient: AVEL PATEL TRIAGE Triage time 20:08. Chief Complaint: SORE THROAT. --20:15 Nereyda Ledesma R.N. 20:08 08/25/16. BP: 102/75 taken on the right arm, via an automated monitor, while sitting. HR: 108 (regular, tachycardic and strong). RR: 16 (regular, unlabored and normal). O2 saturation: 100%. Temp: 98.8 F (oral). Pain level now: 11/30. --20:15 Nereyda Ledesma R.N. Weight: 81.6 kg stated. Height/Length: 67 inches. BMI: 28.2. --20:12 Nereyda Ledesma R.N. Medications SUMAtriptan Succinate Oral (Tablet 50 mg) 1 tablet, as needed. --20:11 Nereyda Ledesma R.N. Amoxicillin Oral, , sinus infection, stopped yesterday. --21:50 Barbara Rodriguez R.N. Allergies None. --20:11 Nereyda Ledesma R.N. History Arrived by private vehicle. Historian: patient. Accompanied by friend. Primary physician (Filemon Sánchez). ( Two weeks ago treated for sinus infection given amox has taken all of it. Now c/o sore throat with puss on tonsils.). SOCIAL HX: Light tobacco smoker- less than 1/2 a pack per day. Occasional alcohol use. History of drug use: marijuana. FALL RISK ASSESSMENT: Fall risk assessment completed. No fall risk identified. NUTRITIONAL RISK ASSESSMENT: The nutritional risk assessment revealed no deficiencies. FUNCTIONAL ASSESSMENT: Functional assessment: no impairments noted. LEARNING NEEDS ASSESSMENT: The learning needs assessment revealed no barriers. --20:15 Nereyda Ledesma R.N. PHYSICAL ASSESSMENT Ambulatory to room. GENERAL / NEURO / PSYCH: Alert. Oriented X 4. Appears in no acute distress. HEENT: Voice within normal limits. RESPIRATORY: Respirations not labored. CVS: Capillary refill less than 2 seconds. SKIN: Skin is warm and dry. --21:51 Barbara Rodriguez R.N. NURSING PROGRESS NOTES 20:41 08/25/16. ( LAB calls in + result for group A Strep). --20:41 Barbara Rodriguez R.N. Head of bed elevated. Two patient identifiers checked. Call light placed in reach. Side rails up x 1. Bed placed in lowest position. Brakes of bed on. --21:51 Barbara Rodriguez R.N. Patient ready for evaluation- chart flagged. --21:51 Barbara Rodriguez R.N. 22:29 08/25/2016 Rocephin (CefTRIAXone Sodium) IM 1 gm with 1% Lidocaine 2.1mL. Given in the left ventral gluteus. Allergies verified and confirmed 5 rights. --22:37 Barbara Rodriguez R.N. 22:30 08/25/2016 Prednisone PO Tablets 60 mg given. Allergies verified and confirmed 5 rights. --22:38 Barbara Rodriguez R.N. 22:31 08/25/2016 Hydrocodone-APAP Liquid (Hydrocodone-Acetaminophen) PO Oral Suspension 10 mL given. Allergies verified, confirmed 5 rights and sedative warning given to the patient. --22:38 Barbara Rodriguez R.N. DISPOSITION / DISCHARGE Condition at departure: stable. No learning barriers present. Discharge instructions provided and reviewed with the patient. Reviewed medication(s) side effects, precautions, dosing and course information. Prescription(s) given to the patient. Patient verbalized understanding. Written instructions provided in Tristanian. The patient was discharged home and accompanied by meter tester. She left the Emergency Department ambulatory and via private vehicle. Location Man driving. --22:49 Barbara Rodriguez R.N. 22:49 08/25/16. BP: deferred. HR: deferred. RR: 15 (regular and unlabored). O2 saturation: deferred. Temp: deferred. [place] pain scale: 2/10. --22:49 Barbara Rodriguez R.N. Locked/Released at 08/25/2016 22:50 by Barbara Rodriguez R.N.
--- NOTE | 2016-09-04 05:37 | ED DISCHARGE INSTRUCTIONS ---
Patient: AVEL PATEL General Instructions [facility] VisitID: [id number] [address] [place] [address] 25y, F Registration Date/Time: 08/25/2016 Acute streptococcal pharyngitis INSTRUCTIONS Drink plenty of fluids. Warnings: SEDATIVE MEDICATION: You were given sedative medication during your visit. Do not drive or operate dangerous machinery for 6 hours. GENERAL WARNINGS: Return or contact your physician immediately if your condition worsens or changes unexpectedly, if not improving as expected, or if other problems arise. Your Current Medications: CONTINUE TAKING THE FOLLOWING MEDICATIONS: Amoxicillin Oral : Stopped: yesterday, sinus infection. SUMAtriptan Succinate Oral : Tablet 50 mg, 1 tablet, prn. Prescription Medications: Prednisone 20 mg: take 3 orally every day for 2 days. Dispense sufficient quantity. No refills. Ceftin 500 mg: take 1 tab orally every 12 hours for 7 days. No refill. Substitution is permissible. Hydrocodone / APAP Liquid 10mg/325mg/15 mL: take five (5) mL orally every 4 hours as needed for pain. Dispense seventy-five (75) mL. No refill. Follow-up: Follow up with your doctor as needed. Understanding of the discharge instructions verbalized by patient. ADDITIONAL INFORMATION Pharyngitis: Strep [Confirmed] Your test for strep throat was positive. Strep throat is a contagious illness. It is spread by coughing, kissing or by touching others after touching your mouth or nose. Symptoms include throat pain which is worse with swallowing, aching all over, headache and fever. You will be treated with an antibiotic which should make you start to feel better within 1-2 days. Home Care: Rest at home and drink plenty of fluids to avoid dehydration. No school or work for the first two days on antibiotics. You will not be contagious after this time and if you are feeling better, you can return to school or work. Take your antibiotics for a full 10 days, even if you feel better after the first few days of treatment. This is very important to prevent heart or kidney disease that can result as a complication of untreated strep throat infection. Children: Use acetaminophen (Tylenol) for fever, fussiness or discomfort. In infants over six months of age, you may use ibuprofen (Children's Motrin) instead of Tylenol. [NOTE: If your child has chronic liver or kidney disease or ever had a stomach ulcer or GI bleeding, talk with your doctor before using these medicines.] (Aspirin should never be used in anyone under 18 years of age who is ill with a fever. It may cause severe liver damage.)Adults: You may use acetaminophen (Tylenol) or ibuprofen (Motrin, Advil) to control pain or fever, unless another medicine was prescribed for this. [NOTE: If you have chronic liver or kidney disease or ever had a stomach ulcer or GI bleeding, talk with your doctor before using these medicines.] Throat lozenges or sprays (Chloraseptic and others) will reduce pain. Gargling with warm salt water will also reduce throat pain. Dissolve 1/2 teaspoon of salt in 1 glass of warm water. This is especially useful just before meals. Follow Up with your doctor or as directed by our staff if you are not improving over the next week. Get Prompt Medical Attention if any of the following occur: Fever of 100.4F (38C) oral or higher, not better with fever medication New or worsening ear pain, sinus pain or headache Painful lumps in the back of your neck Unable to swallow liquids or open your mouth wide due to throat pain Trouble breathing or noisy breathing Muffled voice New rash You have been given the following additional information: Pharyngitis, Strep (Confirmed) (Electronically signed by Annabelle Donahue MD 09/04/2016 5:37)
--- NOTE | 2016-09-04 05:37 | ED MAR SUMMARY ---
..... Medication Administration Record [facility] [address] [place] [address] Patient: AVEL PATEL Visit ID: [id number] 25y, F Weight: 81.6 kg Height/Length: 67 in BMI: 28.2 ALLERGIES: None Given 22:29 08/25/2016 Barbara Rodriguez RBlancaNBlanca Medication Administered: ROCEPHIN [IM] (CEFTRIAXONE SODIUM), Dose: 1 gm IM, With: 1% LIDOCAINE 2.1 mL. Medication Ordered: Rocephin IM 1 gm (NOW). Given 22:30 08/25/2016 Barbara Rodriguez RBlancaNBlanca Medication Administered: PREDNISONE [PO], Dose: 60 mg Tablets PO. Medication Ordered: Prednisone PO 60 mg (NOW). Given 22:31 08/25/2016 Barbara Rodriguez, R.NBlanca Medication Administered: HYDROCODONE-APAP LIQUID [PO] (HYDROCODONE-ACETAMINOPHEN), Dose: 10 mL Oral Suspension PO. Medication Ordered: Hydrocodone-APAP Liquid PO 10 mL (NOW, HIGH ALERT MEDICATION).
--- NOTE | 2016-09-04 05:37 | ED MAR SUMMARY ---
..... Medication Administration Record [facility] [address] [place] [address] Patient: AVEL PATEL Visit ID: [id number] 25y, F Weight: 81.6 kg Height/Length: 67 in BMI: 28.2 ALLERGIES: None Given 22:29 08/25/2016 Barbara Rodriguez RBlancaNBlanca Medication Administered: ROCEPHIN [IM] (CEFTRIAXONE SODIUM), Dose: 1 gm IM, With: 1% LIDOCAINE 2.1 mL. Medication Ordered: Rocephin IM 1 gm (NOW). Given 22:30 08/25/2016 Barbara Rodriguez RBlancaNBlanca Medication Administered: PREDNISONE [PO], Dose: 60 mg Tablets PO. Medication Ordered: Prednisone PO 60 mg (NOW). Given 22:31 08/25/2016 Barbara Rodriguez, R.NBlanca Medication Administered: HYDROCODONE-APAP LIQUID [PO] (HYDROCODONE-ACETAMINOPHEN), Dose: 10 mL Oral Suspension PO. Medication Ordered: Hydrocodone-APAP Liquid PO 10 mL (NOW, HIGH ALERT MEDICATION).
--- NOTE | 2016-09-04 05:37 | ED MED RECONCILIATION SUMMARY ---
Patient: AVEL PATEL Medication Reconciliation Report [facility] VisitID: [id number] [address] [place] [address] 25y, F Registration Date/Time: 08/25/2016 Weight: 81.6 kg Height/Length: 67 in. BMI: 28.2 ALLERGIES: None The patient's Home Medications are listed below: CONTINUE TAKING THE FOLLOWING MEDICATIONS: Amoxicillin Oral, sinus infection SUMAtriptan Succinate Oral (50 mg) 1 tablet The source(s) of the original Home Medication information: Not obtained. The following Medications were given to the patient in the Emergency Department: Rocephin [IM] IM 1 gm with 1% Lidocaine 2.1 mL, administered: 08/25/2016 10:29:00 PM Prednisone [PO] PO 60 mg, administered: 08/25/2016 10:30:00 PM Hydrocodone-APAP Liquid [PO] PO 10 mL, administered: 08/25/2016 10:31:00 PM The following Medications were prescribed to the patient: Prednisone 20 mg: take 3 orally every day for 2 days. Dispense sufficient quantity. No refills. -- Annabelle Donahue MD Ceftin 500 mg: take 1 tab orally every 12 hours for 7 days. No refill. Substitution is permissible. -- Annabelle Donahue MD Hydrocodone / APAP Liquid 10mg/325mg/15 mL: take five (5) mL orally every 4 hours as needed for pain. Dispense seventy-five (75) mL. No refill. -- Annabelle Donahue MD
--- NOTE | 2016-09-04 05:37 | ED MED RECONCILIATION SUMMARY ---
Patient: AVEL PATEL Medication Reconciliation Report [facility] VisitID: [id number] [address] [place] [address] 25y, F Registration Date/Time: 08/25/2016 Weight: 81.6 kg Height/Length: 67 in. BMI: 28.2 ALLERGIES: None The patient's Home Medications are listed below: CONTINUE TAKING THE FOLLOWING MEDICATIONS: Amoxicillin Oral, sinus infection SUMAtriptan Succinate Oral (50 mg) 1 tablet The source(s) of the original Home Medication information: Not obtained. The following Medications were given to the patient in the Emergency Department: Rocephin [IM] IM 1 gm with 1% Lidocaine 2.1 mL, administered: 08/25/2016 10:29:00 PM Prednisone [PO] PO 60 mg, administered: 08/25/2016 10:30:00 PM Hydrocodone-APAP Liquid [PO] PO 10 mL, administered: 08/25/2016 10:31:00 PM The following Medications were prescribed to the patient: Prednisone 20 mg: take 3 orally every day for 2 days. Dispense sufficient quantity. No refills. -- Annabelle Donahue MD Ceftin 500 mg: take 1 tab orally every 12 hours for 7 days. No refill. Substitution is permissible. -- Annabelle Donahue MD Hydrocodone / APAP Liquid 10mg/325mg/15 mL: take five (5) mL orally every 4 hours as needed for pain. Dispense seventy-five (75) mL. No refill. -- Annabelle Donahue MD
== END 2016-08-25 22:49 | disposition home or self-care (01) ==
LOC: ED SRH 19:27
DX: J02.0 Streptococcal pharyngitis (principal)
CPT/HCPCS: 90154

== ENCOUNTER 2016-11-08 06:55 | Emergency (ER) | payer OTHER ==
--- NOTE | 2016-11-08 08:11 | ED NURSING NOTES ---
Clinical Report - Nurses [facility] [place] [address] 11/08/2016 6:56 Patient: AVEL PATEL TRIAGE Triage time 06:56. Acuity: LEVEL 2. Chief Complaint: CHEST PAIN. Alert. No acute distress. DEXTER COMA SCORE: [place] Coma Scale: 15- eyes open spontaneously (4); best verbal response- oriented x 4 (5); best motor response- obeys commands (6). --07:04 Thiago Sánchez R.N. 06:58 11/08/16. BP: 106/65. HR: 77. RR: 22. O2 saturation: 96% on room air. Temp: 97.8 F (oral). Pain level now 7/10. --07:04 Thiago Sánchez R.N. Weight: 81.6 kg stated. Height/Length: 67 inches Per Patient. BMI: 28.2. --06:58 Thiago Sánchez R.N. Medications SUMAtriptan Succinate Oral. --07:00 Thiago Sánchez R.N. Allergies None. --07:00 Thiago Sánchez R.N. Medication/allergy information source: the patient. --07:04 Thiago Sánchez R.N. History Arrived by private vehicle. Historian: patient. Primary physician (no pcp). ( CP with sudden onset during rest at 0600 today while getting ready for work. Pain is described as stabbing in sternum. Also c/o left arm numbness). This started just prior to arrival. 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 PAST MEDICAL HX: Last normal menstrual period now. Denies current . SOCIAL HX: Light tobacco smoker (cigarette)- less than 1/2 a pack per day. History of drug use: marijuana. No alcohol use. ABUSE ASSESSMENT: Abuse assessment: The patient was asked "Do you feel safe in your home?". No report of abuse. SELF HARM ASSESSMENT: A self harm assessment was performed. The patient answered "no" to the question "Do you have thoughts of harming or killing yourself?" and "Have you recently had thoughts about harming or killing others?". FALL RISK ASSESSMENT: Fall risk assessment completed. No fall risk identified. NUTRITIONAL RISK ASSESSMENT: The nutritional risk assessment revealed no deficiencies. FUNCTIONAL ASSESSMENT: Functional assessment: no impairments noted. LEARNING NEEDS ASSESSMENT: The learning needs assessment revealed no barriers. SKIN INTEGRITY ASSESSMENT: Skin integrity risk assessment completed. No skin integrity risk identified. --07:04 Thiago Sánchez R.N. PROBLEMS: Pharyngitis. Sinusitis. --07:00 Thiago Sánchez R.N. Anxiety Reaction. --07:03 Thiago Sánchez R.N. ADDITIONAL SURGERIES: Wrist. --07:00 Thiago Sánchez R.N. Interventions ID band on patient. To treatment room. --07:04 Thiago Sánchez R.N. PHYSICAL ASSESSMENT Ambulatory to room. GENERAL / NEURO / PSYCH: Alert. Oriented X 4. Appears anxious. RESPIRATORY: Respirations not labored. CVS: Normal sinus rhythm noted. Capillary refill less than 2 seconds. GI / : Abdomen soft. EXTREMITIES: No lower extremity edema. SKIN: Skin is warm and dry. --07:05 Thiago Sánchez R.N. NURSING PROGRESS NOTES EKG time: (702). EKG was performed by a nurse and shown to the ED physician. --07:04 Thiago Sánchez R.N. The plan of care for this patient has been created. beauty consultant, pulse oximeter and NIBP monitor placed on patient. Patient gowned. Head of bed elevated. Call light placed in reach. Side rails up x 2. Bed placed in lowest position. Brakes of bed on. --07:04 Thiago Sánchez R.N. Patient ready for evaluation- chart flagged. --07:04 Thiago Sánchez R.N. 07:10 11/08/2016 Site #1 started via IV in the right antecubital space with an 20g angiocath; one attempt. Blood drawn: rainbow set. Labeled in the presence of the patient and sent to the lab. Saline lock flushed with 10 mL saline. --07:10 Minnie Charles R.N. 08:17 06/18/17. Checked patient name and birthdate: patient confirmed. Instructions provided to collect clean catch urine and patient verbalized understanding. Clean catch urine collected with return of yellow-colored clear urine; sample sent to lab for culture and drug screen. Specimen labeled in the presence of the patient. --08:17 Solange Dodge R.N. 08:17 11/08/16. Urine test negative. 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 --08:17 Solange Dodge R.N. DISPOSITION / DISCHARGE 07:16 11/08/16. No learning barriers present. Discharge instructions provided and reviewed with the patient. Reviewed warnings. Reviewed medication(s). Treatments reviewed. Activity restrictions reviewed. Patient verbalized understanding. Written instructions provided in Com[place]an. The patient was discharged home. She left the Emergency Department ambulatory and via private vehicle. Driving (patient states someone will pick her up.). --07:16 Minnie Charles R.N. 07:15 11/08/16. BP: 126/88. HR: 74. RR: 15. O2 saturation: 98%. Temp: 97.5 F. Pain level now: 09/30. --07:16 Minnie Charles R.N. 08:33 11/08/16. Departure time: 831. Condition at departure: improved and stable. No learning barriers present. Discharge instructions provided and reviewed with the patient. Reviewed medication(s) side effects, precautions, dosing and course information. Prescription(s) given to the patient. Patient verbalized understanding. Written instructions provided in [place]an. The patient was discharged by the physician. She was discharged home. She left the Emergency Department ambulatory and via private vehicle. Patient driving. --08:36 Thiago Sánchez R.N. 08:32 11/08/16. BP: 102/49. HR: 75. RR: 16. O2 saturation: 100% on room air. Temp: 97.9 F (oral). Pain level now 5/10. --08:36 Thiago Sánchez R.N. Work note given. --08:36 Thiago Sánchez R.N. Locked/Released at 11/09/2016 9:00 by Solange Dodge R.N.
--- NOTE | 2016-11-08 08:11 | ED CLINICAL REPORT ---
Clinical Report - Physicians/Mid Levels [facility] [address] [place] [address] 11/08/2016 6:56 Patient: AVEL PATEL Time Seen: 07:05. Arrived- By private vehicle. Historian- patient. Not EMS personnel. HISTORY OF PRESENT ILLNESS Chief Complaint: CHEST DISCOMFORT. It is described as sharp. Quality not described as well localized and it is described as located in the central chest area and radiating to the left arm. This started just prior to arrival and is still present. It was abrupt in onset and has been waxing/waning. Onset during rest. At its maximum, severity described as moderate. When seen in the E.D., severity described as moderate. Modifying factors- worsened by movement. Relieved by rest. No nausea, vomiting, difficulty breathing or diaphoresis. Similar symptoms previously: Recent medical care: The patient was seen recently at this facility in the emergency department. Diagnosis: (strep throat - seen approx 2 months ago at [facility] ED). REVIEW OF SYSTEMS Last normal menstrual period now. No fever, chills, cough, pedal edema or calf pain. No fainting episodes, headache, sore throat, abdominal pain or black stools. No difficulty with urination, skin rash or bloody stools. All systems otherwise negative, except as recorded above. PAST HISTORY Sinusitis. Pharyngitis Migraine headaches Anxiety disorder Surgeries: Wrist. SOCIAL HISTORY Smoker- current status unknown. History of drug use: marijuana. No alcohol use. Is a local resident. ADDITIONAL NOTES The nursing notes have been reviewed. PHYSICAL EXAM Vital Signs: 11/08/2016 07:15 BP: 126/88. HR: 74. RR: 15. O2 saturation: 98%. Temp: 97.5 F. Pain level now: 5/10. Appearance: Alert. Oriented X3. Anxious. Patient in mild distress. Eyes: Eyes normal inspection. No scleral icterus or pale conjunctivae. ENT: Pharynx normal. No pharyngeal erythema or tonsillar exudate. The mucous membranes are not dry. Neck: Normal inspection. Neck supple. CVS: Normal heart rate and rhythm. Heart sounds normal. Respiratory: No respiratory distress. Chest pain reproducible with palpation of the sternum and anterior chest wall and with movement of the trunk (inferior sternal / sternochondral area - left>right). Breath sounds normal. Abdomen: Soft and nontender. Back: Normal external inspection. Skin: Skin warm and dry. Normal skin color. Normal skin turgor. Extremities: Extremities exhibit normal ROM. No calf tenderness. No lower extremity edema. Neuro: Oriented X 3. No motor deficit. LABS, X-RAYS, AND EKG EKG: EKG time: (07:10). Normal sinus rhythm. Rate: 70. Occasional unifocal ectopic beats. Premature ventricular contractions. Normal P waves. Normal ELIZABETH. Normal QRS complex. Normal axis. Normal ST and T waves. Chest X-ray: No acute disease. Normal lung markings present. Normal heart size. Mediastinum normal. Great vessels normal. No infiltrate. Views: PA and lateral. Technique: good. The X-rays were interpreted contemporaneously by me. Laboratory Tests: UA-Culture if indicated: (FRANCISCO: 11/08/2016 08:10) ( [facility] 11/08/2016 08:37) Final results Test Result Flag Units (Reference) URINE COLOR YELLOW URINE APPEARANCE CLEAR URINE GLUCOSE NEGATIVE (NEGATIVE) URINE BILIRUBIN NEGATIVE (NEGATIVE) URINE KETONE NEGATIVE (NEGATIVE) URINE SPECIFIC GRAVITY 1.015 (1.010-1.030) URINE PH 6.5 (5.0-8.0) URINE PROTEIN NEGATIVE (NEGATIVE) URINE UROBILINOGEN 0.2 EU/dL (0.2-1.0) URINE NITRITE NEGATIVE (NEGATIVE) URINE BLOOD NEGATIVE (NEGATIVE) URINE LEUK ESTERASE NEGATIVE (NEGATIVE) URINE RBC NONE SEEN rbc/hpf (0-1) URINE WBC 0-1 wbc/hpf (0-1) URINE EPITHELIAL CELLS 1-3 EPI/hpf (0-5) URINE BACTERIA NONE SEEN (NONE SEEN) URINE COMMENT CULT NOT INDICATED URINE CULTURES ARE SET-UP BASED ON THE FOLLOWING CRITERIA:POSITIVE NITRITEPOSITIVE LEUKOCYTE ESTERASEGREATER THAN 10 WHITE BLOOD CELLSMODERATE (2+) OR GREATER BACTERIA Urine Drug Screen: (FRANCISCO: 11/08/2016 08:10) ( [facility] 11/08/2016 08:48) Final results Test Result Flag Units (Reference) AMPHETAMINE/METHAMPHETAMINE NEGATIVE (NEGATIVE) BARBITURATE NEGATIVE (NEGATIVE) BENZODIAZEPINE NEGATIVE (NEGATIVE) CANNABINOID POSITIVE H (NEGATIVE) COCAINE NEGATIVE (NEGATIVE) ECSTASY NEGATIVE (NEGATIVE) METHADONE NEGATIVE (NEGATIVE) OPIATE NEGATIVE (NEGATIVE) The urine drug screen is a qualitative screening test fordrug overdose and abuse. All screen results should beconsidered as presumptive.Drugs screened for are as follows:BenzodiazepinesCocaineAmphetamines/MetamphetaminesTHC (Tetrahydrocannabinol)OpiatesBarbituratesEcstasyMethadonePositive results are unconfirmed. For confirmation, notifythe lab for the specimen to be sent to the reference lab.All confirmations must be performed by a differentmethodology.The ingestion of natural herbal and plant productscontaining Ephedra/Ephedra metabolites can produce in urineone or more substances capable of cross reacting withamphetamine/methamphetamine immunoassays. These testsprovide a preliminary result only. A more specificalternative chemical method must be used to obtain aconfirmed analytical result. . Pulse Oximetry: 11/08/2016 07:15 O2 saturation: 98%. (FIO2 - room air). Interpretation: normal. PROGRESS AND PROCEDURES Course of Care: Clear chest wall tenderness. PERC neg (uses progestin - Mirena IUD). Normal ECG. Normal CXR. Patient/family counseled. Old ED records reviewed. (3 visits to [facility] ED in past 3 months). Disposition: Discharged. Condition: stable and improved. CLINICAL IMPRESSION Chest wall pain .12 lead EKG performed. Chronic substance abuse- tobacco (cigarettes), marijuana with anxiety. Clinical picture does not suggest pulmonary edema or embolism, abnormal EKG, myocardial infarction or unstable angina. Clinical picture does not suggest aortic dissection. INSTRUCTIONS Rest. Do not work for two days. Drink plenty of fluids. Do not smoke. Seek medical help to quit smoking. Warnings: Further evaluation is necessary in order to obtain test results and conduct further tests. It is very important to follow up with a physician. GENERAL WARNINGS: Return or contact your physician immediately if your condition worsens or changes unexpectedly, if not improving as expected, or if other problems arise. Prescription Medications: Ibuprofen 600mg tablets: take 1 tablet orally every 8 hours as needed for pain. Dispense thirty (30). No refills. OTC Medications: Acetaminophen (available over the counter): take according to label instructions. Follow-up: Follow up with your doctor tomorrow. Follow-up with: [facility], , , [facility] [address], , [place], [address]; [facility], , , [address] [place] [address], , [place], ; [facility], , [address] [place] [address] Follow up in about two days. Call for the next available appointment. (Electronically signed by Ulisses Parra DO 11/09/2016 11:39)
--- NOTE | 2016-11-08 08:11 | ED ORDER SUMMARY ---
..... Patient: AVEL PATEL OrderSheet [facility] VisitID: [id number] [address] [place] [address] 26y, F Registration Date/Time: 11/08/2016 ORDER SHEET Weight: 81.6 kg (stated) Allergies: None GENERAL ORDERS: Chest 2V Urgent (07:06 11/08/2016 [facility]) (Ack 7:24 RKaruga) (8:15 MWinterer R.N.) POC - Urine hCG (07:06 11/08/2016 [facility]) (Ack 7:14 MWinterer R.N.) (8:15 MWinterer R.N.) Urine Drug Screen Urgent (07:11/08/2016 [facility]) (Ack 7:24 RKaruga) (8:15 MWinterer R.N.) UA-Culture if indicated Urgent (07:06 11/08/2016 [facility]) (Ack 7:24 RKaruga) (8:15 MWinterer R.N.) EKG - ER Stat (07:06 11/08/2016 [facility]) (7:10 KWilliams R.N.) MEDICATION ORDERS: IV FLUIDS: IV Saline Lock (07:10 11/08/2016 RMarsden R.N. per protocol) (7:10 RMarsden R.N.) ORDER SHEET NOTES: [Electronically signed by Solange Dodge R.N. (09:00 11/09/2016)] [Electronically signed by Ulisses Parra DO (11:39 11/09/2016)] [Electronically locked/signed by Solange Dodge R.N. (09:00 11/09/2016)]
--- NOTE | 2016-11-08 08:11 | ED CLINICAL REPORT ---
Clinical Report - Physicians/Mid Levels [facility] [address] [place] [address] 11/08/2016 6:56 Patient: AVEL PATEL Time Seen: 07:05. Arrived- By private vehicle. Historian- patient. Not EMS personnel. HISTORY OF PRESENT ILLNESS Chief Complaint: CHEST DISCOMFORT. It is described as sharp. Quality not described as well localized and it is described as located in the central chest area and radiating to the left arm. This started just prior to arrival and is still present. It was abrupt in onset and has been waxing/waning. Onset during rest. At its maximum, severity described as moderate. When seen in the E.D., severity described as moderate. Modifying factors- worsened by movement. Relieved by rest. No nausea, vomiting, difficulty breathing or diaphoresis. Similar symptoms previously: Recent medical care: The patient was seen recently at this facility in the emergency department. Diagnosis: (strep throat - seen approx 2 months ago at [facility] ED). REVIEW OF SYSTEMS Last normal menstrual period now. No fever, chills, cough, pedal edema or calf pain. No fainting episodes, headache, sore throat, abdominal pain or black stools. No difficulty with urination, skin rash or bloody stools. All systems otherwise negative, except as recorded above. PAST HISTORY Sinusitis. Pharyngitis Migraine headaches Anxiety disorder Surgeries: Wrist. SOCIAL HISTORY Smoker- current status unknown. History of drug use: marijuana. No alcohol use. Is a local resident. ADDITIONAL NOTES The nursing notes have been reviewed. PHYSICAL EXAM Vital Signs: 11/08/2016 07:15 BP: 126/88. HR: 74. RR: 15. O2 saturation: 98%. Temp: 97.5 F. Pain level now: 5/10. Appearance: Alert. Oriented X3. Anxious. Patient in mild distress. Eyes: Eyes normal inspection. No scleral icterus or pale conjunctivae. ENT: Pharynx normal. No pharyngeal erythema or tonsillar exudate. The mucous membranes are not dry. Neck: Normal inspection. Neck supple. CVS: Normal heart rate and rhythm. Heart sounds normal. Respiratory: No respiratory distress. Chest pain reproducible with palpation of the sternum and anterior chest wall and with movement of the trunk (inferior sternal / sternochondral area - left>right). Breath sounds normal. Abdomen: Soft and nontender. Back: Normal external inspection. Skin: Skin warm and dry. Normal skin color. Normal skin turgor. Extremities: Extremities exhibit normal ROM. No calf tenderness. No lower extremity edema. Neuro: Oriented X 3. No motor deficit. LABS, X-RAYS, AND EKG EKG: EKG time: (07:10). Normal sinus rhythm. Rate: 70. Occasional unifocal ectopic beats. Premature ventricular contractions. Normal P waves. Normal ELIZABETH. Normal QRS complex. Normal axis. Normal ST and T waves. Chest X-ray: No acute disease. Normal lung markings present. Normal heart size. Mediastinum normal. Great vessels normal. No infiltrate. Views: PA and lateral. Technique: good. The X-rays were interpreted contemporaneously by me. Laboratory Tests: UA-Culture if indicated: (FRANCISCO: 11/08/2016 08:10) ( [facility] 11/08/2016 08:37) Final results Test Result Flag Units (Reference) URINE COLOR YELLOW URINE APPEARANCE CLEAR URINE GLUCOSE NEGATIVE (NEGATIVE) URINE BILIRUBIN NEGATIVE (NEGATIVE) URINE KETONE NEGATIVE (NEGATIVE) URINE SPECIFIC GRAVITY 1.015 (1.010-1.030) URINE PH 6.5 (5.0-8.0) URINE PROTEIN NEGATIVE (NEGATIVE) URINE UROBILINOGEN 0.2 EU/dL (0.2-1.0) URINE NITRITE NEGATIVE (NEGATIVE) URINE BLOOD NEGATIVE (NEGATIVE) URINE LEUK ESTERASE NEGATIVE (NEGATIVE) URINE RBC NONE SEEN rbc/hpf (0-1) URINE WBC 0-1 wbc/hpf (0-1) URINE EPITHELIAL CELLS 1-3 EPI/hpf (0-5) URINE BACTERIA NONE SEEN (NONE SEEN) URINE COMMENT CULT NOT INDICATED URINE CULTURES ARE SET-UP BASED ON THE FOLLOWING CRITERIA:POSITIVE NITRITEPOSITIVE LEUKOCYTE ESTERASEGREATER THAN 10 WHITE BLOOD CELLSMODERATE (2+) OR GREATER BACTERIA Urine Drug Screen: (FRANCISCO: 11/08/2016 08:10) ( [facility] 11/08/2016 08:48) Final results Test Result Flag Units (Reference) AMPHETAMINE/METHAMPHETAMINE NEGATIVE (NEGATIVE) BARBITURATE NEGATIVE (NEGATIVE) BENZODIAZEPINE NEGATIVE (NEGATIVE) CANNABINOID POSITIVE H (NEGATIVE) COCAINE NEGATIVE (NEGATIVE) ECSTASY NEGATIVE (NEGATIVE) METHADONE NEGATIVE (NEGATIVE) OPIATE NEGATIVE (NEGATIVE) The urine drug screen is a qualitative screening test fordrug overdose and abuse. All screen results should beconsidered as presumptive.Drugs screened for are as follows:BenzodiazepinesCocaineAmphetamines/MetamphetaminesTHC (Tetrahydrocannabinol)OpiatesBarbituratesEcstasyMethadonePositive results are unconfirmed. For confirmation, notifythe lab for the specimen to be sent to the reference lab.All confirmations must be performed by a differentmethodology.The ingestion of natural herbal and plant productscontaining Ephedra/Ephedra metabolites can produce in urineone or more substances capable of cross reacting withamphetamine/methamphetamine immunoassays. These testsprovide a preliminary result only. A more specificalternative chemical method must be used to obtain aconfirmed analytical result. . Pulse Oximetry: 11/08/2016 07:15 O2 saturation: 98%. (FIO2 - room air). Interpretation: normal. PROGRESS AND PROCEDURES Course of Care: Clear chest wall tenderness. PERC neg (uses progestin - Mirena IUD). Normal ECG. Normal CXR. Patient/family counseled. Old ED records reviewed. (3 visits to [facility] ED in past 3 months). Disposition: Discharged. Condition: stable and improved. CLINICAL IMPRESSION Chest wall pain .12 lead EKG performed. Chronic substance abuse- tobacco (cigarettes), marijuana with anxiety. Clinical picture does not suggest pulmonary edema or embolism, abnormal EKG, myocardial infarction or unstable angina. Clinical picture does not suggest aortic dissection. INSTRUCTIONS Rest. Do not work for two days. Drink plenty of fluids. Do not smoke. Seek medical help to quit smoking. Warnings: Further evaluation is necessary in order to obtain test results and conduct further tests. It is very important to follow up with a physician. GENERAL WARNINGS: Return or contact your physician immediately if your condition worsens or changes unexpectedly, if not improving as expected, or if other problems arise. Prescription Medications: Ibuprofen 600mg tablets: take 1 tablet orally every 8 hours as needed for pain. Dispense thirty (30). No refills. OTC Medications: Acetaminophen (available over the counter): take according to label instructions. Follow-up: Follow up with your doctor tomorrow. Follow-up with: [facility], , , [facility] [address], , [place], [address]; [facility], , , [address] [place] [address], , [place], ; [facility], , [address] [place] [address] Follow up in about two days. Call for the next available appointment. (Electronically signed by Ulisses Parra DO 11/09/2016 11:39)
--- NOTE | 2016-11-08 08:11 | ED ORDER SUMMARY ---
..... Patient: AVEL PATEL OrderSheet [facility] VisitID: [id number] [address] [place] [address] 26y, F Registration Date/Time: 11/08/2016 ORDER SHEET Weight: 81.6 kg (stated) Allergies: None GENERAL ORDERS: Chest 2V Urgent (07:06 11/08/2016 [facility]) (Ack 7:24 RKaruga) (8:15 MWinterer R.N.) POC - Urine hCG (07:06 11/08/2016 [facility]) (Ack 7:14 MWinterer R.N.) (8:15 MWinterer R.N.) Urine Drug Screen Urgent (07:11/08/2016 [facility]) (Ack 7:24 RKaruga) (8:15 MWinterer R.N.) UA-Culture if indicated Urgent (07:06 11/08/2016 [facility]) (Ack 7:24 RKaruga) (8:15 MWinterer R.N.) EKG - ER Stat (07:06 11/08/2016 [facility]) (7:10 KWilliams R.N.) MEDICATION ORDERS: IV FLUIDS: IV Saline Lock (07:10 11/08/2016 RMarsden R.N. per protocol) (7:10 RMarsden R.N.) ORDER SHEET NOTES: [Electronically signed by Solange Dodge R.N. (09:00 11/09/2016)] [Electronically signed by Ulisses Parra DO (11:39 11/09/2016)] [Electronically locked/signed by Solange Dodge R.N. (09:00 11/09/2016)]
--- NOTE | 2016-11-08 08:11 | ED NURSING NOTES ---
Clinical Report - Nurses [facility] [place] [address] 11/08/2016 6:56 Patient: AVEL PATEL TRIAGE Triage time 06:56. Acuity: LEVEL 2. Chief Complaint: CHEST PAIN. Alert. No acute distress. DEXTER COMA SCORE: [place] Coma Scale: 15- eyes open spontaneously (4); best verbal response- oriented x 4 (5); best motor response- obeys commands (6). --07:04 Thiago Sánchez R.N. 06:58 11/08/16. BP: 106/65. HR: 77. RR: 22. O2 saturation: 96% on room air. Temp: 97.8 F (oral). Pain level now 7/10. --07:04 Thiago Sánchez R.N. Weight: 81.6 kg stated. Height/Length: 67 inches Per Patient. BMI: 28.2. --06:58 Thiago Sánchez R.N. Medications SUMAtriptan Succinate Oral. --07:00 Thiago Sánchez R.N. Allergies None. --07:00 Thiago Sánchez R.N. Medication/allergy information source: the patient. --07:04 Thiago Sánchez R.N. History Arrived by private vehicle. Historian: patient. Primary physician (no pcp). ( CP with sudden onset during rest at 0600 today while getting ready for work. Pain is described as stabbing in sternum. Also c/o left arm numbness). This started just prior to arrival. Treatment STRETCH BOX TENDER: None. PAST MEDICAL HX: Last normal menstrual period now. Denies current . SOCIAL HX: Light tobacco smoker (cigarette)- less than 1/2 a pack per day. History of drug use: marijuana. No alcohol use. ABUSE ASSESSMENT: Abuse assessment: The patient was asked "Do you feel safe in your home?". No report of abuse. SELF HARM ASSESSMENT: A self harm assessment was performed. The patient answered "no" to the question "Do you have thoughts of harming or killing yourself?" and "Have you recently had thoughts about harming or killing others?". FALL RISK ASSESSMENT: Fall risk assessment completed. No fall risk identified. NUTRITIONAL RISK ASSESSMENT: The nutritional risk assessment revealed no deficiencies. FUNCTIONAL ASSESSMENT: Functional assessment: no impairments noted. LEARNING NEEDS ASSESSMENT: The learning needs assessment revealed no barriers. SKIN INTEGRITY ASSESSMENT: Skin integrity risk assessment completed. No skin integrity risk identified. --07:04 Thiago Sánchez R.N. PROBLEMS: Pharyngitis. Sinusitis. --07:00 Thiago Sánchez R.N. Anxiety Reaction. --07:03 Thiago Sánchez R.N. ADDITIONAL SURGERIES: Wrist. --07:00 Thiago Sánchez R.N. Interventions ID band on patient. To treatment room. --07:04 Thiago Sánchez R.N. PHYSICAL ASSESSMENT Ambulatory to room. GENERAL / NEURO / PSYCH: Alert. Oriented X 4. Appears anxious. RESPIRATORY: Respirations not labored. CVS: Normal sinus rhythm noted. Capillary refill less than 2 seconds. GI / : Abdomen soft. EXTREMITIES: No lower extremity edema. SKIN: Skin is warm and dry. --07:05 Thiago Sánchez R.N. NURSING PROGRESS NOTES EKG time: (702). EKG was performed by a nurse and shown to the ED physician. --07:04 Thiago Sánchez R.N. The plan of care for this patient has been created. manager monitoring, pulse oximeter and NIBP monitor placed on patient. Patient gowned. Head of bed elevated. Call light placed in reach. Side rails up x 2. Bed placed in lowest position. Brakes of bed on. --07:04 Thiago Sánchez R.N. Patient ready for evaluation- chart flagged. --07:04 Thiago Sánchez R.N. 07:10 11/08/2016 Site #1 started via IV in the right antecubital space with an 20g angiocath; one attempt. Blood drawn: rainbow set. Labeled in the presence of the patient and sent to the lab. Saline lock flushed with 10 mL saline. --07:10 Minnie Charles R.N. 08:17 06/18/17. Checked patient name and birthdate: patient confirmed. Instructions provided to collect clean catch urine and patient verbalized understanding. Clean catch urine collected with return of yellow-colored clear urine; sample sent to lab for culture and drug screen. Specimen labeled in the presence of the patient. --08:17 Solange Dodge R.N. 08:17 11/08/16. Urine test negative. 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 --08:17 Solange Dodge R.N. DISPOSITION / DISCHARGE 07:16 11/08/16. No learning barriers present. Discharge instructions provided and reviewed with the patient. Reviewed warnings. Reviewed medication(s). Treatments reviewed. Activity restrictions reviewed. Patient verbalized understanding. Written instructions provided in Tajik. The patient was discharged home. She left the Emergency Department ambulatory and via private vehicle. Driving (patient states someone will pick her up.). --07:16 Minnie Charles R.N. 07:15 11/08/16. BP: 126/88. HR: 74. RR: 15. O2 saturation: 98%. Temp: 97.5 F. Pain level now: 09/30. --07:16 Minnie Charles R.N. 08:33 11/08/16. Departure time: 831. Condition at departure: improved and stable. No learning barriers present. Discharge instructions provided and reviewed with the patient. Reviewed medication(s) side effects, precautions, dosing and course information. Prescription(s) given to the patient. Patient verbalized understanding. Written instructions provided in Tajik. The patient was discharged by the physician. She was discharged home. She left the Emergency Department ambulatory and via private vehicle. Patient driving. --08:36 Thiago Sánchez R.N. 08:32 11/08/16. BP: 102/49. HR: 75. RR: 16. O2 saturation: 100% on room air. Temp: 97.9 F (oral). Pain level now 5/10. --08:36 Thiago Sánchez R.N. Work note given. --08:36 Thiago Sánchez R.N. Locked/Released at 11/09/2016 9:00 by Solange Dodge R.N.
--- NOTE | 2016-11-08 08:13 | DIAGNOSTIC IMAGING REPORT ---
PROCEDURE: XR CHEST 2 VIEW INDICATION: CHEST PAIN TECHNIQUE: PA and lateral views. COMPARISON: None. FINDINGS: Allowing for overlying wires and electrodes, lungs are clear. Heart and mediastinum are normal. Thorax is normal. IMPRESSION: 1. Negative chest.
--- NOTE | 2016-11-09 11:40 | ED MAR SUMMARY ---
..... Medication Administration Record [facility] [address], [place] [id number] Patient: AVEL PATEL Visit ID: [id number] 26y, F Weight: 81.6 kg Height/Length: 67 in BMI: 28.2 ALLERGIES: None
--- NOTE | 2016-11-09 11:40 | ED MED RECONCILIATION SUMMARY ---
Patient: AVEL PATEL Medication Reconciliation Report [facility] VisitID: [id number] [address] [place] [address] 26y, F Registration Date/Time: 11/08/2016 Weight: 81.6 kg Height/Length: 67 in. BMI: 28.2 ALLERGIES: None The patient's Home Medications are listed below: THE FOLLOWING MEDICATIONS NEED TO BE RECONCILED: SUMAtriptan Succinate Oral The source(s) of the original Home Medication information: patient The following Medications were given to the patient in the Emergency Department: None. The following Medications were prescribed to the patient: Acetaminophen (available over the counter): take according to label instructions. -- Ulisses Parra DO Ibuprofen 600mg tablets: take 1 tablet orally every 8 hours as needed for pain. Dispense thirty (30). No refills. -- Ulisses Parra DO
--- NOTE | 2016-11-09 11:40 | ED MED RECONCILIATION SUMMARY ---
Patient: AVEL PATEL Medication Reconciliation Report [facility] VisitID: [id number] [address] [place] [address] 26y, F Registration Date/Time: 11/08/2016 Weight: 81.6 kg Height/Length: 67 in. BMI: 28.2 ALLERGIES: None The patient's Home Medications are listed below: THE FOLLOWING MEDICATIONS NEED TO BE RECONCILED: SUMAtriptan Succinate Oral The source(s) of the original Home Medication information: patient The following Medications were given to the patient in the Emergency Department: None. The following Medications were prescribed to the patient: Acetaminophen (available over the counter): take according to label instructions. -- Ulisses Parra DO Ibuprofen 600mg tablets: take 1 tablet orally every 8 hours as needed for pain. Dispense thirty (30). No refills. -- Ulisses Parra DO
--- NOTE | 2016-11-09 11:40 | ED DISCHARGE INSTRUCTIONS ---
Patient: AVEL PATEL General Instructions [facility] VisitID: [id number] [address] [place] [address] 26y, F Registration Date/Time: 11/08/2016 Chest wall pain .12 lead EKG performed. Chronic substance abuse- tobacco (cigarettes), marijuana with anxiety. INSTRUCTIONS Rest. Do not work for two days. Drink plenty of fluids. Do not smoke. Seek medical help to quit smoking. Warnings: Further evaluation is necessary in order to obtain test results and conduct further tests. It is very important to follow up with a physician. GENERAL WARNINGS: Return or contact your physician immediately if your condition worsens or changes unexpectedly, if not improving as expected, or if other problems arise. Prescription Medications: Ibuprofen 600mg tablets: take 1 tablet orally every 8 hours as needed for pain. Dispense thirty (30). No refills. OTC Medications: Acetaminophen (available over the counter): take according to label instructions. Follow-up: Follow up with your doctor tomorrow. Follow-up with: [facility], , , [address], [facility], [address]; [facility], , , [address] [place] [address], ; [facility], [facility], , [address] [place] [address] Follow up in about two days. Call for the next available appointment. ADDITIONAL INFORMATION Chest Wall Pain: Costochondritis The chest pain that you have had today is caused by Costochondritis. This condition is due to an inflammation of the cartilage joining the ribs to the breastbone. It is not caused by heart or lung problems. Although the exact cause for costochondritis is not known, it often occurs during times of emotional stress. It can be painful, but it is not dangerous. It usually disappears within one to two weeks, but may recur. Rarely, a more serious condition may cause symptoms similar to costochondritis; therefore, watch for the warning signs listed below. Home Care: If you feel that emotional stress is a cause of your condition, try to identify sources of that stress. It may not be obvious! Learn ways to deal with the stress in your life such as regular exercise, muscle relaxation, meditation, or simply taking time out for yourself. For more information about this, consult your doctor or go to a local bookstore and review books and tapes available on the subject of stress reduction. You may use acetaminophen (Tylenol) or ibuprofen (Motrin, Advil) to control pain, unless another pain medicine was prescribed. [ NOTE: If you have liver disease or ever had a stomach ulcer, talk with your doctor before using these medicines.] The use of heat (hot wet compress or heating pad) with or without local analgesic creams (Deep Heat Rub, Vince Adhikari) will be helpful to reduce pain. Follow Up with your doctor as directed or sooner if you do not start to improve within the next two days. Get Prompt Medical Attention if any of the following occur: A change in the type of pain: if it feels different, becomes more severe, lasts longer, or spreads into your shoulder, arm, neck, jaw or back Shortness of breath or increased pain with breathing Weakness, dizziness, or fainting Cough with dark colored sputum (phlegm) or blood Abdominal pain Dark red or black stools Fever of 100.4F (38C) or higher, or as directed by your healthcare provider Marijuana Abuse Marijuana is the most widely used illegal drug in the [place]. It is called by various names such as pot, weed, blunts, grass, reefer, ganja, hash, hashish. It is usually smoked but can be mixed with foods or brewed as a tea. It is sometimes sold with PCP (Freddie Dust) or amphetamine mixed in it. These drugs can cause other harmful side effects. Marijuana can cause the following effects: Changes in mood (stimulated, happy, drowsy, depressed, paranoid) Hallucinations Increased heart rate and blood pressure Increased appetite Time distortion, difficulty concentrating, impaired memory Lung damage (similar to cigarettes with chronic cough, wheezing, frequent colds and bronchitis) You can become psychologically dependent on marijuana. That means the craving to use the drug is emotional or psychological rather than due to physical withdrawal. Is Marijuana Running Your Life? Here are some of the signs: Relying on marijuana to feel good, forget problems, deal with stress or to relax Wanting to be alone most of the time or only with others who use drugs Losing interest in things that used to be important Changes in school or job performance or attendance Spending a lot of time thinking about how to get marijuana Stealing or selling your things so you can buy marijuana Unable to stop using even though you may want to quit Increasing anxiety, anger,or depression Sleeping too much, changes in eating habits (weight loss or gain) Needing to use more to get the same effect Home Care Once you have become addicted to any drug, quitting is hard to do. Most people find they can't quit without help. So, dont try to do this alone. Talk to someone you trust who can support you. Seek professional help. Avoid people and places where drugs are used. That only increases the temptation to use. Follow Up with your doctor or as advised by our staff. For more information or a referral to a treatment center in your area, contact: Your local mental health center or the National Alcohol and Substance Abuse Information Center (614)-823-8454 www.addictioncareThat's Us Technologies.com National United [place] on Alcoholism and Drug Dependence 510-251-JLWV www.ncadd.org Marijuana Anonymous 462-744-9089 www.marijuana-anonymous.org Get Prompt Medical Attention if any of the following occur: You feel extreme depression, fear, anxiety, or anger toward yourself or others You feel out of control You feel that you may try to harm yourself or another How To Quit Smoking Smoking is one of the hardest habits to break. About half of all those who have ever smoked have been able to quit, and most of those (about 70%) who still smoke want to quit. Here are some of the best ways to stop smoking. Keep Trying: It takes most smokers about 8 tries before they are finally able to fully quit. So, the more often you try and fail, the better your chance of quitting the next time! So, don't give up! Go Cold [place]: Most ex-smokers quit cold turkey. Trying to cut back gradually doesn't seem to work as well, perhaps because it continues the smoking habit. Also, it is possible to fool yourself by inhaling more while smoking fewer cigarettes. This results in the same amount of nicotine in your body! Get Support: Support programs can make an important difference, especially for the heavy smoker. These groups offer lectures, methods to change your behavior and peer support. Call the free national Quitline for more information. 293-SDQL-DIM (047-667-3251). Low-cost or free programs are offered by many hospitals, local chapters of the [place] [employer] (357-680-3417) and the [place] [employer] (248-551-7925). Support at home is important too. Non-smokers can help by offering praise and encouragement. If the smoker fails to quit, encourage them to try again! Hcmy-Tjq-Sexkfya Medicines: For those who can't quit on their own, Nicotine Replacement Therapy (NRT) may make quitting much easier. Certain aids such as the nicotine patch, gum and lozenge are available without a prescription. However, it is best to use these under the guidance of your doctor. The skin patch provides a steady supply of nicotine to the body. Nicotine gum and lozenge gives temporary bursts of low levels of nicotine. Both methods take the edge off the craving for cigarettes. WARNING: If you feel symptoms of nicotine overdose, such as nausea, vomiting, dizziness, weakness, or fast heartbeat, stop using these and see your doctor. Prescription Medicines: After evaluating your smoking patterns and prior attempts at quitting, your doctor may offer a prescription medicine such as bupropion (Zyban, Wellbutrin), varenicline (Chantix, Champix), a niocotine inhaler or nasal spray. Each has its unique advantage and side effects which your doctor can review with you. Health Benefits Of Quitting: The benefits of quitting start right away and keep improving the longer you go without smokin minutes: blood pressure and pulse return to normal 8 hours: oxygen levels return to normal 2 days: ability to smell and taste begins to improve as damaged nerves start to regrow 2-3 weeks: circulation and lung function improves 1-9 months: decreased cough, congestion and shortness of breath; less tired 1 year: risk of heart attack decreases by half 5 years: risk of lung cancer decreases by half; risk of stroke becomes the same as a non-smoker For information about how to quit smoking, visit the following links: National Cancer [place] , Clearing the Air, Quit Smoking Today - an online booklet. http://www.smokefree.gov/pubs/clearing_the_air.pdf Smokefree.gov http://smokefree.gov/ QuitNet http://www.quitnet.com/ Ibuprofen Oral tablet What is this medicine? IBUPROFEN (eye BYOO proe fen) is a non-steroidal anti-inflammatory drug (NSAID). It is used for dental pain, fever, headaches or migraines, osteoarthritis, rheumatoid arthritis, or painful monthly periods. It can also relieve minor aches and pains caused by a cold, flu, or sore throat. How should I use this medicine? Take this medicine by mouth with a glass of water. Follow the directions on the prescription label. Take this medicine with food if your stomach gets upset. Try to not lie down for at least 10 minutes after you take the medicine. Take your medicine at regular intervals. Do not take your medicine more often than directed. A special MedGuide will be given to you by the pharmacist with each prescription and refill. Be sure to read this information carefully each time. Talk to your outsole cutter machine regarding the use of this medicine in children. Special care may be needed. What side effects may I notice from receiving this medicine? Side effects that you should report to your doctor or health nanny caregiver as soon as possible: allergic reactions like skin rash, itching or hives, swelling of the face, lips, or tongue black or bloody stools, blood in the urine or in vomit breathing problems changes in vision chest pain general ill feeling or flu-like symptoms nausea or vomiting redness, blistering, peeling or loosening of the skin, including inside the mouth slurred speech or weakness on one side of the body stomach pain unexplained weight gain or swelling unusually weak or tired yellowing of eyes or skin Side effects that usually do not require medical attention (report to your doctor or health nanny caregiver if they continue or are bothersome): constipation or diarrhea dizziness gas or heartburn stomach upset What may interact with this medicine? Do not take this medicine with any of the following medications: cidofovir ketorolac methotrexate pemetrexed This medicine may also interact with the following medications: alcohol aspirin diuretics lithium other drugs for inflammation like prednisone warfarin What if I miss a dose? If you miss a dose, take it as soon as you can. If it is almost time for your next dose, take only that dose. Do not take double or extra doses. Where should I keep my medicine? Keep out of the reach of children. Store at room temperature between 15 and 30 degrees C (59 and 86 degrees F). Keep container tightly closed. Throw away any unused medicine after the expiration date. What should I tell my health care provider before I take this medicine? They need to know if you have any of these conditions: asthma cigarette smoker drink more than 3 alcohol containing drinks a day heart disease or circulation problems such as heart failure or leg edema (fluid retention) high blood pressure kidney disease liver disease stomach bleeding or ulcers an unusual or allergic reaction to ibuprofen, aspirin, other NSAIDS, other medicines, foods, dyes, or preservatives or trying to get breast-feeding What should I watch for while using this medicine? Tell your doctor or healthcare professional if your symptoms do not start to get better or if they get worse. This medicine does not prevent heart attack or stroke. In fact, this medicine may increase the chance of a heart attack or stroke. The chance may increase with longer use of this medicine and in people who have heart disease. If you take aspirin to prevent heart attack or stroke, talk with your doctor or health nanny caregiver. Do not take other medicines that contain aspirin, ibuprofen, or naproxen with this medicine. Side effects such as stomach upset, nausea, or ulcers may be more likely to occur. Many medicines available without a prescription should not be taken with this medicine. This medicine can cause ulcers and bleeding in the stomach and intestines at any time during treatment. Ulcers and bleeding can happen without warning symptoms and can cause . To reduce your risk, do not smoke cigarettes or drink alcohol while you are taking this medicine. You may get drowsy or dizzy. Do not drive, use machinery, or do anything that needs mental alertness until you know how this medicine affects you. Do not stand or sit up quickly, especially if you are an older patient. This reduces the risk of dizzy or fainting spells. This medicine can cause you to bleed more easily. Try to avoid damage to your teeth and gums when you brush or floss your teeth. Acetaminophen Oral tablet What is this medicine? ACETAMINOPHEN (a set a MARIAN yasemin fen) is a pain reliever. It is used to treat mild pain and fever. How should I use this medicine? Take this medicine by mouth with a glass of water. Follow the directions on the package or prescription label. Take your medicine at regular intervals. Do not take your medicine more often than directed. Talk to your outsole cutter machine regarding the use of this medicine in children. While this drug may be prescribed for children as young as 6 years of age for selected conditions, precautions do apply. What side effects may I notice from receiving this medicine? Side effects that you should report to your doctor or health nanny caregiver as soon as possible: allergic reactions like skin rash, itching or hives, swelling of the face, lips, or tongue breathing problems fever or sore throat redness, blistering, peeling or loosening of the skin, including inside the mouth trouble passing urine or change in the amount of urine unusual bleeding or bruising unusually weak or tired yellowing of the eyes or skin Side effects that usually do not require medical attention (report to your doctor or health nanny caregiver if they continue or are bothersome): headache nausea, stomach upset What may interact with this medicine? alcohol imatinib isoniazid other medicines with acetaminophen What if I miss a dose? If you miss a dose, take it as soon as you can. If it is almost time for your next dose, take only that dose. Do not take double or extra doses. Where should I keep my medicine? Keep out of reach of children. Store at room temperature between 20 and 25 degrees C (68 and 77 degrees F). Protect from moisture and heat. Throw away any unused medicine after the expiration date. What should I tell my health care provider before I take this medicine? They need to know if you have any of these conditions: if you frequently drink alcohol containing drinks liver disease an unusual or allergic reaction to acetaminophen, other medicines, foods, dyes or preservatives or trying to get breast-feeding What should I watch for while using this medicine? Tell your doctor or health nanny caregiver if the pain lasts more than 10 days (5 days for children), if it gets worse, or if there is a new or different kind of pain. Also, check with your doctor if a fever lasts for more than 3 days. Do not take other medicines that contain acetaminophen with this medicine. Always read labels carefully. If you have questions, ask your doctor or pharmacist. If you take too much acetaminophen get medical help right away. Too much acetaminophen can be very dangerous and cause liver damage. Even if you do not have symptoms, it is important to get help right away. You have been given the following additional information: Chest Wall Pain, Costochondritis Marijuana Abuse Smoking Cessation Ibuprofen Oral tablet Acetaminophen Oral tablet Rest. Do not work for two days. (Electronically signed by Ulisses Parra DO 11/09/2016 11:39)
--- NOTE | 2016-11-09 11:40 | ED MAR SUMMARY ---
..... Medication Administration Record [facility] [address], [place] [id number] Patient: AVEL PATEL Visit ID: [id number] 26y, F Weight: 81.6 kg Height/Length: 67 in BMI: 28.2 ALLERGIES: None
--- NOTE | 2016-11-09 11:40 | ED DISCHARGE INSTRUCTIONS ---
Patient: AVEL PATEL General Instructions [facility] VisitID: [id number] [address] [place] [address] 26y, F Registration Date/Time: 11/08/2016 Chest wall pain .12 lead EKG performed. Chronic substance abuse- tobacco (cigarettes), marijuana with anxiety. INSTRUCTIONS Rest. Do not work for two days. Drink plenty of fluids. Do not smoke. Seek medical help to quit smoking. Warnings: Further evaluation is necessary in order to obtain test results and conduct further tests. It is very important to follow up with a physician. GENERAL WARNINGS: Return or contact your physician immediately if your condition worsens or changes unexpectedly, if not improving as expected, or if other problems arise. Prescription Medications: Ibuprofen 600mg tablets: take 1 tablet orally every 8 hours as needed for pain. Dispense thirty (30). No refills. OTC Medications: Acetaminophen (available over the counter): take according to label instructions. Follow-up: Follow up with your doctor tomorrow. Follow-up with: [facility], , , [address], [facility], [id number]; [facility], , , [address] [place] [address], ; [facility], [facility], , [address] [place] [address] Follow up in about two days. Call for the next available appointment. ADDITIONAL INFORMATION Chest Wall Pain: Costochondritis The chest pain that you have had today is caused by Costochondritis. This condition is due to an inflammation of the cartilage joining the ribs to the breastbone. It is not caused by heart or lung problems. Although the exact cause for costochondritis is not known, it often occurs during times of emotional stress. It can be painful, but it is not dangerous. It usually disappears within one to two weeks, but may recur. Rarely, a more serious condition may cause symptoms similar to costochondritis; therefore, watch for the warning signs listed below. Home Care: If you feel that emotional stress is a cause of your condition, try to identify sources of that stress. It may not be obvious! Learn ways to deal with the stress in your life such as regular exercise, muscle relaxation, meditation, or simply taking time out for yourself. For more information about this, consult your doctor or go to a local bookstore and review books and tapes available on the subject of stress reduction. You may use acetaminophen (Tylenol) or ibuprofen (Motrin, Advil) to control pain, unless another pain medicine was prescribed. [ NOTE: If you have liver disease or ever had a stomach ulcer, talk with your doctor before using these medicines.] The use of heat (hot wet compress or heating pad) with or without local analgesic creams (Deep Heat Rub, Vince Adhikari) will be helpful to reduce pain. Follow Up with your doctor as directed or sooner if you do not start to improve within the next two days. Get Prompt Medical Attention if any of the following occur: A change in the type of pain: if it feels different, becomes more severe, lasts longer, or spreads into your shoulder, arm, neck, jaw or back Shortness of breath or increased pain with breathing Weakness, dizziness, or fainting Cough with dark colored sputum (phlegm) or blood Abdominal pain Dark red or black stools Fever of 100.4F (38C) or higher, or as directed by your healthcare provider Marijuana Abuse Marijuana is the most widely used illegal drug in the [place]. It is called by various names such as pot, weed, blunts, grass, reefer, ganja, hash, hashish. It is usually smoked but can be mixed with foods or brewed as a tea. It is sometimes sold with PCP (Freddie Dust) or amphetamine mixed in it. These drugs can cause other harmful side effects. Marijuana can cause the following effects: Changes in mood (stimulated, happy, drowsy, depressed, paranoid) Hallucinations Increased heart rate and blood pressure Increased appetite Time distortion, difficulty concentrating, impaired memory Lung damage (similar to cigarettes with chronic cough, wheezing, frequent colds and bronchitis) You can become psychologically dependent on marijuana. That means the craving to use the drug is emotional or psychological rather than due to physical withdrawal. Is Marijuana Running Your Life? Here are some of the signs: Relying on marijuana to feel good, forget problems, deal with stress or to relax Wanting to be alone most of the time or only with others who use drugs Losing interest in things that used to be important Changes in school or job performance or attendance Spending a lot of time thinking about how to get marijuana Stealing or selling your things so you can buy marijuana Unable to stop using even though you may want to quit Increasing anxiety, anger,or depression Sleeping too much, changes in eating habits (weight loss or gain) Needing to use more to get the same effect Home Care Once you have become addicted to any drug, quitting is hard to do. Most people find they can't quit without help. So, dont try to do this alone. Talk to someone you trust who can support you. Seek professional help. Avoid people and places where drugs are used. That only increases the temptation to use. Follow Up with your doctor or as advised by our staff. For more information or a referral to a treatment center in your area, contact: Your local mental health center or the National Alcohol and Substance Abuse Information Center (320)-420-6189 www.addictioncareScreen Tonic.com National [place] on Alcoholism and Drug Dependence 259-257-IZMQ www.ncadd.org Marijuana Anonymous 172-534-8774 www.marijuana-anonymous.org Get Prompt Medical Attention if any of the following occur: You feel extreme depression, fear, anxiety, or anger toward yourself or others You feel out of control You feel that you may try to harm yourself or another How To Quit Smoking Smoking is one of the hardest habits to break. About half of all those who have ever smoked have been able to quit, and most of those (about 70%) who still smoke want to quit. Here are some of the best ways to stop smoking. Keep Trying: It takes most smokers about 8 tries before they are finally able to fully quit. So, the more often you try and fail, the better your chance of quitting the next time! So, don't give up! Go Cold [place]: Most ex-smokers quit cold turkey. Trying to cut back gradually doesn't seem to work as well, perhaps because it continues the smoking habit. Also, it is possible to fool yourself by inhaling more while smoking fewer cigarettes. This results in the same amount of nicotine in your body! Get Support: Support programs can make an important difference, especially for the heavy smoker. These groups offer lectures, methods to change your behavior and peer support. Call the free national Quitline for more information. 204-PMOU-JFH (353-724-8616). Low-cost or free programs are offered by many hospitals, local chapters of the [place] [employer] (275-250-3502) and the [employer] (526-516-6594). Support at home is important too. Non-smokers can help by offering praise and encouragement. If the smoker fails to quit, encourage them to try again! Xldm-Oba-Rdwkqms Medicines: For those who can't quit on their own, Nicotine Replacement Therapy (NRT) may make quitting much easier. Certain aids such as the nicotine patch, gum and lozenge are available without a prescription. However, it is best to use these under the guidance of your doctor. The skin patch provides a steady supply of nicotine to the body. Nicotine gum and lozenge gives temporary bursts of low levels of nicotine. Both methods take the edge off the craving for cigarettes. WARNING: If you feel symptoms of nicotine overdose, such as nausea, vomiting, dizziness, weakness, or fast heartbeat, stop using these and see your doctor. Prescription Medicines: After evaluating your smoking patterns and prior attempts at quitting, your doctor may offer a prescription medicine such as bupropion (Zyban, Wellbutrin), varenicline (Chantix, Champix), a niocotine inhaler or nasal spray. Each has its unique advantage and side effects which your doctor can review with you. Health Benefits Of Quitting: The benefits of quitting start right away and keep improving the longer you go without smokin minutes: blood pressure and pulse return to normal 8 hours: oxygen levels return to normal 2 days: ability to smell and taste begins to improve as damaged nerves start to regrow 2-3 weeks: circulation and lung function improves 1-9 months: decreased cough, congestion and shortness of breath; less tired 1 year: risk of heart attack decreases by half 5 years: risk of lung cancer decreases by half; risk of stroke becomes the same as a non-smoker For information about how to quit smoking, visit the following links: National Cancer [place] , Clearing the Air, Quit Smoking Today - an online booklet. http://www.smokefree.gov/pubs/clearing_the_air.pdf Smokefree.gov http://smokefree.gov/ QuitNet http://www.quitnet.com/ Ibuprofen Oral tablet What is this medicine? IBUPROFEN (eye BYOO proe fen) is a non-steroidal anti-inflammatory drug (NSAID). It is used for dental pain, fever, headaches or migraines, osteoarthritis, rheumatoid arthritis, or painful monthly periods. It can also relieve minor aches and pains caused by a cold, flu, or sore throat. How should I use this medicine? Take this medicine by mouth with a glass of water. Follow the directions on the prescription label. Take this medicine with food if your stomach gets upset. Try to not lie down for at least 10 minutes after you take the medicine. Take your medicine at regular intervals. Do not take your medicine more often than directed. A special MedGuide will be given to you by the pharmacist with each prescription and refill. Be sure to read this information carefully each time. Talk to your finished goods planner regarding the use of this medicine in children. Special care may be needed. What side effects may I notice from receiving this medicine? Side effects that you should report to your doctor or health patient care assistant as soon as possible: allergic reactions like skin rash, itching or hives, swelling of the face, lips, or tongue black or bloody stools, blood in the urine or in vomit breathing problems changes in vision chest pain general ill feeling or flu-like symptoms nausea or vomiting redness, blistering, peeling or loosening of the skin, including inside the mouth slurred speech or weakness on one side of the body stomach pain unexplained weight gain or swelling unusually weak or tired yellowing of eyes or skin Side effects that usually do not require medical attention (report to your doctor or health patient care assistant if they continue or are bothersome): constipation or diarrhea dizziness gas or heartburn stomach upset What may interact with this medicine? Do not take this medicine with any of the following medications: cidofovir ketorolac methotrexate pemetrexed This medicine may also interact with the following medications: alcohol aspirin diuretics lithium other drugs for inflammation like prednisone warfarin What if I miss a dose? If you miss a dose, take it as soon as you can. If it is almost time for your next dose, take only that dose. Do not take double or extra doses. Where should I keep my medicine? Keep out of the reach of children. Store at room temperature between 15 and 30 degrees C (59 and 86 degrees F). Keep container tightly closed. Throw away any unused medicine after the expiration date. What should I tell my health care provider before I take this medicine? They need to know if you have any of these conditions: asthma cigarette smoker drink more than 3 alcohol containing drinks a day heart disease or circulation problems such as heart failure or leg edema (fluid retention) high blood pressure kidney disease liver disease stomach bleeding or ulcers an unusual or allergic reaction to ibuprofen, aspirin, other NSAIDS, other medicines, foods, dyes, or preservatives or trying to get breast-feeding What should I watch for while using this medicine? Tell your doctor or healthcare professional if your symptoms do not start to get better or if they get worse. This medicine does not prevent heart attack or stroke. In fact, this medicine may increase the chance of a heart attack or stroke. The chance may increase with longer use of this medicine and in people who have heart disease. If you take aspirin to prevent heart attack or stroke, talk with your doctor or health patient care assistant. Do not take other medicines that contain aspirin, ibuprofen, or naproxen with this medicine. Side effects such as stomach upset, nausea, or ulcers may be more likely to occur. Many medicines available without a prescription should not be taken with this medicine. This medicine can cause ulcers and bleeding in the stomach and intestines at any time during treatment. Ulcers and bleeding can happen without warning symptoms and can cause . To reduce your risk, do not smoke cigarettes or drink alcohol while you are taking this medicine. You may get drowsy or dizzy. Do not drive, use machinery, or do anything that needs mental alertness until you know how this medicine affects you. Do not stand or sit up quickly, especially if you are an older patient. This reduces the risk of dizzy or fainting spells. This medicine can cause you to bleed more easily. Try to avoid damage to your teeth and gums when you brush or floss your teeth. Acetaminophen Oral tablet What is this medicine? ACETAMINOPHEN (a set a MRAIAN yasemin fen) is a pain reliever. It is used to treat mild pain and fever. How should I use this medicine? Take this medicine by mouth with a glass of water. Follow the directions on the package or prescription label. Take your medicine at regular intervals. Do not take your medicine more often than directed. Talk to your finished goods planner regarding the use of this medicine in children. While this drug may be prescribed for children as young as 6 years of age for selected conditions, precautions do apply. What side effects may I notice from receiving this medicine? Side effects that you should report to your doctor or health patient care assistant as soon as possible: allergic reactions like skin rash, itching or hives, swelling of the face, lips, or tongue breathing problems fever or sore throat redness, blistering, peeling or loosening of the skin, including inside the mouth trouble passing urine or change in the amount of urine unusual bleeding or bruising unusually weak or tired yellowing of the eyes or skin Side effects that usually do not require medical attention (report to your doctor or health patient care assistant if they continue or are bothersome): headache nausea, stomach upset What may interact with this medicine? alcohol imatinib isoniazid other medicines with acetaminophen What if I miss a dose? If you miss a dose, take it as soon as you can. If it is almost time for your next dose, take only that dose. Do not take double or extra doses. Where should I keep my medicine? Keep out of reach of children. Store at room temperature between 20 and 25 degrees C (68 and 77 degrees F). Protect from moisture and heat. Throw away any unused medicine after the expiration date. What should I tell my health care provider before I take this medicine? They need to know if you have any of these conditions: if you frequently drink alcohol containing drinks liver disease an unusual or allergic reaction to acetaminophen, other medicines, foods, dyes or preservatives or trying to get breast-feeding What should I watch for while using this medicine? Tell your doctor or health patient care assistant if the pain lasts more than 10 days (5 days for children), if it gets worse, or if there is a new or different kind of pain. Also, check with your doctor if a fever lasts for more than 3 days. Do not take other medicines that contain acetaminophen with this medicine. Always read labels carefully. If you have questions, ask your doctor or pharmacist. If you take too much acetaminophen get medical help right away. Too much acetaminophen can be very dangerous and cause liver damage. Even if you do not have symptoms, it is important to get help right away. You have been given the following additional information: Chest Wall Pain, Costochondritis Marijuana Abuse Smoking Cessation Ibuprofen Oral tablet Acetaminophen Oral tablet Rest. Do not work for two days. (Electronically signed by Ulisses Parra DO 11/09/2016 11:39)
== END 2016-11-08 08:32 | disposition home or self-care (01) ==
LOC: ED SRH 06:55
DX: R07.89 Other chest pain (principal); F17.210 Nicotine dependence, cigarettes, uncomplicated; F12.180 Cannabis abuse with cannabis-induced anxiety disorder
CPT/HCPCS: 90004; 92760; 92761; 92762; 92763; 92764; 92765; 92766; 92767